=== PATIENT | female | born 1955 | race Caucasian/White ===

== ENCOUNTER 2016-07-11 14:46 | Emergency (ER) | payer OTHER ==
[~2016-07-11] VITALS: Ht 162.6 cm; Wt 97.0 kg
[~2016-07-11 14:46] MED LIST: ALBU8.5H3 IH; AMLO1CAP5 PO; ASPI-664 PO; DONE10TA7 PO; IBUP-1542 PO; IPRA12.93 IH; LAMO150T15 PO; METF500T4 PO; NAPR-260 PO; NIT4 SL; SER IH; SODI44SP11 NASAL; TOPI100T42 PO
[2016-07-11 14:49] VITALS: Ht 162.6 cm; Wt 97.0 kg
--- NOTE | 2016-07-11 17:10 | RADRPT ---
PROCEDURE: XR Knee. CLINICAL INDICATION: Right knee pain TECHNIQUE: Three views of the right knee are available for review. COMPARISON: None available FINDINGS: Mild narrowing of the medial compartment of the right knee is seen. Mild narrowing of the lateral c ompartment of the right knee is seen. There is narrowing of the patellofemoral joint as well. Ther e is significant associated osteophyte formation as well. Findings are consistent with significant osteoarthritic degenerative changes of the right knee. No acute fracture or dislocation is seen. N o radiopaque foreign body is identified. Alignment remains anatomic. There is a small suprapatellar effusion present. IMPRESSION: 1. Tricompartmental osteoarthritic degenerative changes of the right knee. 2. No acute fracture or dislocation is seen. RPTAT: [facility] Physician Pablo Date Time Electronically viewed and signed by Physician Pablo on 07/11/2016 17:10 ODILON/
--- NOTE | 2016-07-11 17:12 | RADRPT ---
PROCEDURE: XR Ankle. CLINICAL INDICATION: Ankle pain. TECHNIQUE: Three views of the right ankle are available for review. COMPARISON: None available FINDINGS: The osseous structures and surrounding soft tissues are all unremarkable. No acute fracture or dislocation is seen. Articular surfaces appear intact. There are Achilles tendon and plantar calcaneal spurs. No radiopaque foreign body is identified. IMPRESSION: 1. Achilles tendon and plantar calcaneal spurs. 2. No acute fracture or subluxation identified. RPTAT: [facility] Physician Pablo Date Time Electronically viewed and signed by Stuart Sawyer Physician on 07/11/2016 17:12 /
[2016-07-11] MEDS ORDERED: IBUP-1542 PO (17:15)
[2016-07-11 17:20] VITALS: BP 154/75; PULSE 68; RESP 18
--- NOTE | 2016-07-11 18:04 | ERD ---
ER Documentation Chief Complaint Date/Time DATE: 07/11/16 TIME: 17:56 Chief Complaint RT KNEE PAIN HPI Patient is a 61-year-old female who presents to the ED with right knee and ankle pain. She denies falls or trauma. She states that when she was walking she developed pain to the inside of her knee. She states that she does have chronic knee problems and has had previous surgery on this knee. She denies any falls. She denies hitting her head, losing consciousness or blacking out. She denies headache or dizziness or weakness. She denies abdominal pain, nausea , vomiting or diarrhea. She also complains of right ankle pain. She denies hurting her ankle, twisting or falling. She denies fever or chills. She is here for x-rays. She denies numbness or tingling. She denies pain in her hips. She is able to ambulate with her walker. No change in ambulation. Patient states that her blood pressure readings at home are usually 150s over 90s ROS All systems reviewed and are negative except as per history of present illness. Medications Home Meds Active Scripts Ibuprofen* (Motrin*) 600 Mg Tab, 600 MG PO Q6, #30 TAB Prov:KATE MAGALLON PA-C 07/11/16 Ibuprofen* (Motrin*) 600 Mg Tab, 600 MG PO Q8, #30 TAB Prov:TANA MAZARIEGOS DO 03/04/16 Naproxen* (Naprosyn*) 500 Mg Tablet, 500 MG PO BID Y for PAIN AND/OR INFLAMMATION, #30 TAB Prov:IMTIAZ AMAYA PA-C 02/29/16 Sodium Chloride (Saline Nasal [place]) 45 Ml [place], 2 SPRAYS NASAL Q2H Y for NASAL CONGESTION, #1 BOTTLE Prov:TRENA HUITRON DIVIDER OPERATOR 07/10/15 Ibuprofen* (Ibuprofen*) 600 Mg Tablet, 600 MG PO Q6, #20 TAB Prov:REMI HALL 05/10/15 Reported Medications Lamotrigine* (Lamictal*) 150 Mg Tablet, 150 MG PO BID, TAB 12/15/15 Metformin* (Glucophage*) 500 Mg Tab, 500 MG PO BID WITH MEALS, #60 TAB 12/15/15 Ipratropium [place]* (Atrovent HFA*) 12.9 Gm Aer.w.adap, 2 PUFF IH Q4H Y for SHORTNESS OF BREATH, EA 01/14/15 Salmeterol Xinafoate* (Serevent Diskus*) 50 Mcg/Disk W/Dev Disk.w.dev, 1 PUFF IH BID, INH 01/14/15 Donepezil* (Aricept*) 10 Mg Tablet, 10 MG PO DAILY, TAB 01/14/15 Amlodipine-Benazepril (Lotrel) 5-10 Mg Capsule, 1 CAP PO DAILY, CAP 11/07/14 Albuterol Sulfate* (Proair HFA*) 8.5 Gm Hfa.aer.ad, 2 PUFFS IH PRN 02/19/13 Aspirin (Aspirin) 81 Mg Tablet.dr, 81 MG PO DAILY 02/19/13 Nitroglycerin* (Nitrostat*) 0.4 Mg Tab.subl, 0.4 MG SL PRN 02/19/13 Topiramate* (Topamax*) 100 Mg Tablet, 100 MG PO BID 02/19/13 Allergies Allergies: Coded Allergies: acetaminophen (Verified Allergy, Mild, RASH, 07/10/15) codeine (Verified Allergy, Unknown, pt said she turns red, 07/10/15) temazepam (Verified Allergy, Unknown, ITCHINESS, RASH, 07/10/15) fluoxetine (Verified Adverse Reaction, Mild, DEPRESSION, 07/10/15) PMhx/Soc History of Surgery: No Anesthesia Reaction: No Hx Neurological Disorder: No (SEIZURE) Hx Respiratory Disorders: No Hx Cardiac Disorders: Yes (HNT) Hx Alcohol Use: No Hx Substance Use: No Hx Tobacco Use: No FmHx Family History: No coronary disease, No diabetes, No other Physical Exam Vitals Physical Exam GENERAL: Well-developed, well-nourished female using a walker. Appears in no acute distress. HEAD: Normocephalic, atraumatic. LUNG: Clear to auscultation bilaterally. No rhonchi, wheezing, rales or coarse breath sounds. HEART: Regular rate and rhythm. No murmurs, rubs or gallops. ORTHO: tenderness to anterior and posterior knee. no swelling. no erythema or signs of infection. able to flex and extend knee. slight tenderness to medial and laterol malleus. Pulses intact bilaterally. good flexion and extension. No swelling, ecchymosis or erythema. No deformities or step-offs. No signs of infection. BACK: No midline tenderness. Extremities: Equal pulses bilaterally. No peripheral clubbing, cyanosis or edema. No unilateral leg swelling. NEUROLOGIC: Alert and oriented. Moving all four extremities. 5/5 strength in all extremities. Normal speech. Steady gait. Cranial nerves II through XII intact SKIN: Normal color. Warm and dry. No rashes or lesions. Capillary refill < 2 seconds Procedures/MDM ER COURSE: I kept the patient and/or family informed of laboratory and diagnostic imaging results throughout the emergency room course. EKG, MONITORS, & DIAGNOSTIC IMAGIN[address] [place], [place] [id number] Radiology Main Line: [phone] DIAGNOSTIC IMAGING REPORT Patient: NORMA ALICEA : 1955 Age: 61 Sex: F MR #: [id number] DOS: 07/11/16 1606 Ordering MD: KATE MAGALLON PA-C Location: [facility] Room/Bed: PROCEDURE: XR Ankle. CLINICAL INDICATION: Ankle pain. TECHNIQUE: Three views of the right ankle are available for review. COMPARISON: None available FINDINGS: The osseous structures and surrounding soft tissues are all unremarkable. No acute fracture or dislocation is seen. Articular surfaces appear intact. There are Achilles tendon and plantar calcaneal spurs. No radiopaque foreign body is identified. IMPRESSION: 1. Achilles tendon and plantar calcaneal spurs. 2. No acute fracture or subluxation identified. RPTAT: [facility] Physician Pablo Date Time Electronically viewed and signed by Physician Pablo on 07/11/2016 17: 12 JH/ CC: KATE MAGALLON PA-C [address] [address] Radiology Main Line: [phone] DIAGNOSTIC IMAGING REPORT Patient: NORMA ALICEA : 1955 Age: 61 Sex: F MR #: [id number] DOS: 07/11/16 1606 Ordering MD: KATE MAGALLON PA-C Location: [facility] Room/Bed: PROCEDURE: XR Knee. CLINICAL INDICATION: Right knee pain TECHNIQUE: Three views of the right knee are available for review. COMPARISON: None available FINDINGS: Mild narrowing of the medial compartment of the right knee is seen. Mild narrowing of the lateral compartment of the right knee is seen. There is narrowing of the patellofemoral joint as well. There is significant associated osteophyte formation as well. Findings are consistent with significant osteoarthritic degenerative changes of the right knee. No acute fracture or dislocation is seen. No radiopaque foreign body is identified. Alignment remains anatomic. There is a small suprapatellar effusion present. IMPRESSION: 1. Tricompartmental osteoarthritic degenerative changes of the right knee. 2. No acute fracture or dislocation is seen. RPTAT: A[facility] Physician Pablo Date Time Electronically viewed and signed by Physician Pablo on 07/11/2016 17: 10 JH/ CC: KATE MAGALLON PA-C PROCEDURES: Charles wrap assessment: Neurovascularly intact post Charles wrap placement with good fit. MEDICAL DECISION MAKING: This is a 61-year-old female who presents with right knee and right ankle pain. Vital signs were reviewed. Patient is afebrile. Patient is not hypoxic. Patient had a blood pressure reading of 177/80 at triage. However after examination patient's blood pressure was 154/75. Patient does have a history of hypertension and she takes her medication daily. She denies any headache or dizziness. I have low suspicion for hypertensive urgency, emergency, seizures or endorgan damage. Low suspicion for intracranial hemorrhage, meningitis, intracranial mass, concussion, temporal arteritis, stroke, elevated intracranial pressure, seizure. I do not think a CT scan is warranted at this time as patient does not have any symptoms. As well as any blood pressure medication in the ED. Patient is to follow-up with her primary care provider regarding better management of her blood pressure. Her 177/80 blood pressure was likely related to pain and nerves in the ED. Patient's knee pain and ankle pain is likely osteoarthritis. Low suspicion for dislocation, fracture, septic joint, compartment syndrome, osteomyelitis, avascular necrosis, DVT, Achilles tendon rupture, cellulitis. At this time, unable to rule out any tendon and ligament injuries. Low suspicion for dislocation, fracture, septic joint, compartment syndrome, osteomyelitis, cellulitis, avascular necrosis, neurological injury, vascular injury, tendon laceration. DISCHARGE: At this time, patient is stable for discharge and outpatient management with no new complaints during the ER course. Patient was sent home with ibuprofen. Patient will be discharged home with instructions to recheck for new or worsening symptoms such as fever, nausea, weakness, LOC and to follow up with primary care in the next 1-2 days. Patient was advised to return to the ER for any new or worsening symptoms. Plan was discussed and patient and/or family understands and agrees. Home instructions were given. Departure Diagnosis: Primary Impression: Knee pain Laterality: right Chronicity: chronic Qualified Code: M25.561 - Chronic pain of right knee Condition: Stable Patient Instructions: What Is Osteoarthritis?, Osteoarthritis: Coping with Pain , Osteoarthritis: Exercise Referrals: SWAPNA AGUILA MD (PCP) Additional Instructions: Call your primary care doctor TOMORROW for an appointment during the next 1-2 days.See the doctor sooner or return here if your condition worsens before your appointment time. KATE MAGALLON PA-C Jul 11, 2016 18:04 Patient Instructions: What Is Osteoarthritis?, Osteoarthritis: Coping with Pain , Osteoarthritis: Exercise Referrals: SWAPNA AGUILA MD (PCP) Additional Instructions: Call your primary care doctor TOMORROW for an appointment during the next 1-2 days.See the doctor sooner or return here if your condition worsens before your appointment time. KATE MAGALLON PA-C Jul 11, 2016 18:04
== END 2016-07-11 17:41 | disposition home or self-care (01) ==
LOC: FTE 14:46
DX: M25.561 Pain in right knee (principal); I10 Essential (primary) hypertension; E11.9 Type 2 diabetes mellitus without complications; Z79.82 Long term (current) use of aspirin; Z79.84 Long term (current) use of oral hypoglycemic drugs
CPT/HCPCS: 73562; 73610; Z7502

== ENCOUNTER 2016-07-28 13:02 | Emergency (ER) | payer OTHER ==
[~2016-07-28] VITALS: Wt 97.8 kg
[2016-07-28] MEDS ORDERED: ASPIRIN 325 MG TAB PO STA (13:46)
[2016-07-28 13:59] LABS: BASOPHILS % 0.1 % (0.0-2.0); EOSINOPHILS # 0.1 10^3/ul (0.0-0.5); EOSINOPHILS % 1.3 % (0.0-7.0); HEMATOCRIT 42.7 % (37.0-47.0); HEMOGLOBIN 14.6 g/dl (12.0-16.0); LYMPHOCYTES % 14.3 % (15.0-51.0); MEAN CORPUSCULAR HEMOGLOBIN 30.9 pg (29.0-33.0); MEAN CORPUSCULAR HGB CONC 34.2 g/dl (32.0-37.0); MEAN CORPUSCULAR VOLUME 90.3 fl (82.0-101.0); MEAN PLATELET VOLUME 8.1 fl (7.4-10.4); MONOCYTE # 0.6 10^3/ul (0.3-0.9); MONOCYTES % 8.7 % (0.0-11.0); NEUTROPHIL # 5.4 10^3/ul (1.6-7.5); NEUTROPHILS % 75.6 % (39.0-77.0); PLATELET COUNT 177 10^3/UL (140-440); RED BLOOD COUNT 4.73 10^6/ul (4.20-5.40); RED CELL DISTRIBUTION WIDTH 13.4 % (11.5-14.5); UNCORRECTED WBC 7.2 10^3/ul (4.8-10.8); WHITE BLOOD COUNT 7.2 10^3/ul (4.8-10.8)
[2016-07-28 14:07] LABS: CHLORIDE 100 mmol/L (97-110); POTASSIUM 3.5 mmol/L (3.5-5.1); SODIUM 144 mmol/L (135-144)
[2016-07-28 14:09] LABS: INR 1.04; PROTIME 13.6 Sec (12.2-14.2); PT RATIO 1.1
[2016-07-28 14:10] LABS: ANION GAP 18 (8-16); CARBON DIOXIDE 30 mmol/L (21-31); CREATININE 1.45 mg/dl (0.44-1.00); PARTIAL THROMBOPLASTIN TIME 27.5 Sec (25.0-35.0)
[2016-07-28 14:11] LABS: BLOOD UREA NITROGEN 28 mg/dl (7-20); CALCIUM 9.5 mg/dl (8.4-10.2); GLUCOSE 116 mg/dl (70-220)
[2016-07-28 14:13] LABS: CONDITION 1
--- NOTE | 2016-07-28 14:14 | RADRPT ---
PROCEDURE: Chest x-ray CLINICAL INDICATION: Chest Pain.. TECHNIQUE: One-view frontal. COMPARISON: 03/03/2016 FINDINGS: The patient has taken a very limited inspiration. The cardiac silhouette is normal. No infiltrates are noted. No hilar abnormalities are identified. No pneumothorax or pleural effusions are visualized. A pacemaker like devices partially visualized in the left lateral extrathoracic chest. However no d efinite leads are noted. IMPRESSION: 1. No active cardiopulmonary changes. RPTAT: HH .Washington Aragon MD, MD Date Time Electronically viewed and signed by .Washington Aragon MD, on 07/28/2016 14:14 .G/
[2016-07-28 14:19] LABS: B-TYPE NATRIURETIC PEPTIDE 340 PG/ML (0-125)
[2016-07-28 14:25] LABS: TROPONIN-I < 0.012 ng/ml (0.00-0.12)
[2016-07-28] MEDS ORDERED: SOD CHLORIDE 0.9% 1,000 ML IV ONE (16:00)
[2016-07-28] MEDS ORDERED: AZIT500T5 PO (16:56)
[2016-07-28] MEDS ORDERED: UDROBDM PO (16:56)
[2016-07-28] MEDS ORDERED: ONDA4TAB11 PO (16:56)
[2016-07-28] MEDS ORDERED: HYDROCODONE/APAP (5/325) TAB PO ONE (17:00)
[2016-07-28 17:48] VITALS: BP 165/70; PULSE 65; RESP 17; TEMP 98.1
--- NOTE | 2016-07-28 17:56 | ERD ---
ER Documentation Chief Complaint Date/Time DATE: 07/28/16 TIME: 17:46 Chief Complaint COUGHING AND CONGESTION INTERMITTENT CHEST WALL PAIN WITH COUGH, NO FEVERS HPI This 61-year-old female presents with coughing congestion for the last 2 days. She is denies chest pain but states only when she coughed as her chest hurt. She has no fevers or chills. She lives at independent living facility that requires her to be out for 48 hours every week. This is negative for 48 hours and she was hoping she can stay here. ROS All systems reviewed and are negative except as per history of present illness. Medications Home Meds Active Scripts Guaifenesin-Dextromethorphan* (Robitussin* DM) 100MG/10MG/5ML Syrup, 5 ML PO Q6H Y for COUGH, #100 ML Prov:COSMETALITA DO 07/28/16 Azithromycin* (Azithromycin*) 500 Mg Tablet, 500 MG PO DAILY, #3 TAB Prov:TALITA AGUIAR DO 07/28/16 Ondansetron (Zofran Odt) 4 Mg Tab.rapdis, 4 MG PO Q6 for NAUSEA, #10 Prov:COSMETALITA DO 07/28/16 Reported Medications Lamotrigine* (Lamictal*) 150 Mg Tablet, 150 MG PO BID, TAB 12/15/15 Metformin* (Glucophage*) 500 Mg Tab, 500 MG PO BID WITH MEALS, #60 TAB 12/15/15 Ipratropium [place]* (Atrovent HFA*) 12.9 Gm Aer.w.adap, 2 PUFF IH Q4H Y for SHORTNESS OF BREATH, EA 01/14/15 Salmeterol Xinafoate* (Serevent Diskus*) 50 Mcg/Disk W/Dev Disk.w.dev, 1 PUFF IH BID, INH 01/14/15 Donepezil* (Aricept*) 10 Mg Tablet, 10 MG PO DAILY, TAB 01/14/15 Amlodipine-Benazepril (Lotrel) 5-10 Mg Capsule, 1 CAP PO DAILY, CAP 11/07/14 Albuterol Sulfate* (Proair HFA*) 8.5 Gm Hfa.aer.ad, 2 PUFFS IH PRN 02/19/13 Aspirin (Aspirin) 81 Mg Tablet.dr, 81 MG PO DAILY 02/19/13 Nitroglycerin* (Nitrostat*) 0.4 Mg Tab.subl, 0.4 MG SL PRN 02/19/13 Topiramate* (Topamax*) 100 Mg Tablet, 100 MG PO BID 02/19/13 Discontinued Scripts Ibuprofen* (Motrin*) 600 Mg Tab, 600 MG PO Q6, #30 TAB Prov:KATE MAGALLON PA-C 07/11/16 Ibuprofen* (Motrin*) 600 Mg Tab, 600 MG PO Q8, #30 TAB Prov:TANA MAZARIEGOS DO 03/04/16 Naproxen* (Naprosyn*) 500 Mg Tablet, 500 MG PO BID Y for PAIN AND/OR INFLAMMATION, #30 TAB Prov:IMTIAZ AMAYA PA-C 02/29/16 Sodium Chloride (Saline Nasal [place]) 45 Ml [place], 2 SPRAYS NASAL Q2H Y for NASAL CONGESTION, #1 BOTTLE Prov:TRENA HUITRON BOWL TOPPER 07/10/15 Ibuprofen* (Ibuprofen*) 600 Mg Tablet, 600 MG PO Q6, #20 TAB Prov:REMI HALL 05/10/15 Allergies Allergies: Coded Allergies: acetaminophen (Verified Allergy, Mild, RASH, 07/28/16) codeine (Verified Allergy, Unknown, pt said she turns red, 07/28/16) temazepam (Verified Allergy, Unknown, ITCHINESS, RASH, 07/28/16) fluoxetine (Verified Adverse Reaction, Mild, DEPRESSION, 07/28/16) PMhx/Soc 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 ) Hx Psychiatric Problems: Yes (depression) Hx Miscellaneous Medical Probl: Yes (diabetic . metformin) Hx Alcohol Use: No Hx Substance Use: No Hx Tobacco Use: No Smoking Status: Unknown if ever smoked Physical Exam Vitals Vital Signs Date Time Temp Pulse Resp B/P Pulse Ox O2 Delivery O2 Flow Rate FiO2 07/28/16 16:27 97 20 133/81 100 Room Air 07/28/16 15:11 70 20 158/76 98 Room Air 07/28/16 14:22 68 18 131/80 97 Room Air 07/28/16 14:00 71 18 131/80 98 Room Air 07/28/16 13:35 72 18 150/79 98 Room Air 07/28/16 13:11 98.0 76 20 156/75 98 Physical Exam Const: [] No distress Head: Atraumatic Eyes: Normal Conjunctiva, EOMI, PERRLA ENT: Normal External Ears, Nose and Mouth. Neck: Full range of motion..~ No meningismus. Resp: Clear to auscultation bilaterally Cardio: Regular rate and rhythm, no murmurs Abd: Soft, non tender, non distended. Normal bowel sounds Skin: No petechiae or rashes Back: No midline or flank tenderness Ext: No cyanosis, or edema Neur: Awake and alert and oriented 3, no focal deficits Psych: Normal Mood and Affect Result Diagram: 07/28/16 1347 07/28/16 1347 Results 24 hrs Laboratory Tests Test 07/28/16 13:47 Activated Partial Thromboplast Time 27.5Sec Anion Gap 18 B-Type Natriuretic Peptide 340PG/ML Basophils # 0.010^3/ul Basophils % 0.1% Blood Urea Nitrogen 28mg/dl Calcium Level 9.5mg/dl Carbon Dioxide Level 30mmol/L Chloride Level 100mmol/L Creatinine 1.45mg/dl Eosinophils # 0.110^3/ul Eosinophils % 1.3% Glucose Level 116mg/dl Hematocrit 42.7% Hemoglobin 14.6g/dl INR International Normalized Ratio 1.04 Lymphocytes # 1.010^3/ul Lymphocytes % 14.3% Mean Corpuscular Hemoglobin 30.9pg Mean Corpuscular Hemoglobin Concent 34.2g/dl Mean Corpuscular Volume 90.3fl Mean Platelet Volume 8.1fl Monocytes # 0.610^3/ul Monocytes % 8.7% Neutrophils # 5.410^3/ul Neutrophils % 75.6% Nucleated Red Blood Cells # 0.010^3/ul Nucleated Red Blood Cells % 0.0/100WBC Platelet Count 02490^3/UL Potassium Level 3.5mmol/L Prothrombin Time 13.6Sec Prothrombin Time Ratio 1.1 Red Blood Count 4.7310^6/ul Red Cell Distribution Width 13.4% Sodium Level 144mmol/L Troponin I < 0.012ng/ml White Blood Count 7.210^3/ul Current Medications Medications (Trade) Dose Ordered Sig/Bladimir Route PRN Reason Start Time Stop Time Status Last Admin Dose Admin Aspirin 325 mg 325 mg ONCE STAT PO 07/28/16 13:46 07/28/16 13:50 DC 07/28/16 14:18 Sodium Chloride (NS) 1,000 ml @ 1,000 mls/hr Q1H ONCE IV 07/28/16 16:00 07/28/16 16:59 DC 07/28/16 16:11 Acetaminophen/ Hydrocodone Bitart ([place] (5/325)) 1 tab ONCE ONCE PO 07/28/16 17:00 07/28/16 17:01 DC 07/28/16 17:02 Procedures/MDM This 61-year-old female presents for a mild cough and congestion. Being treated with azithromycin for bronchitis. She also has an elevated creatinine more so than on her latest visit. She states that she hardly ever drinks water prefers to drink soda. I hydrated her with a liter of normal saline. She also asked for a pain pill for her pain when she coughs. She was not observed coughing emergency room I did give her [place] which she said relieved her pain. She states that she will drink water now. I'm giving her Zofran on that she has not have nausea so that she can drink water. I am also discharging her with Robitussin DM cough syrup. She has a primary care doctor and I'm encouraging follow-up on Saturday. Given return precautions to the ER if she develops any other acute symptoms. No signs of serious bacterial infection. Chest x-ray interpretation: No acute process, no infiltrate no widened mediastinum no pulmonary edema, no fractures EKG interpretation: Normal sinus rhythm normal axis, slight T-wave inversions in anterolateral leads, normal intervals. Essentially unchanged from prior EKG. Cardio monitor interpretation: Normal sinus rhythm without arrhythmia Departure Diagnosis: Primary Impression: Bronchitis Additional Impression: BESSIE (acute kidney injury) Condition: Stable Patient Instructions: Bronchitis, Antiobiotic Treatment (Adult), Renal Insufficiency Additional Instructions: Call your primary care doctor TOMORROW for an appointment during the next 1-2 days.See the doctor sooner or return here if your condition worsens before your appointment time. TALITA AGUIAR DO Jul 28, 2016 17:56
== END 2016-07-28 17:49 | disposition home or self-care (01) ==
LOC: E/R 13:02
DX: J20.9 Acute bronchitis, unspecified (principal); R07.89 Other chest pain; N17.9 Acute kidney failure, unspecified; E11.9 Type 2 diabetes mellitus without complications; Z79.82 Long term (current) use of aspirin; Z79.84 Long term (current) use of oral hypoglycemic drugs
CPT/HCPCS: 36415; 71010; 80048; 83880; 84484; 85025; 85610; 85730; J7030; Z7502; Z7610; 93005

== ENCOUNTER 2016-09-11 21:32 | Emergency (ER) | payer OTHER ==
[~2016-09-11] VITALS: Ht 162.6 cm; Wt 102.2 kg
[~2016-09-11 21:32] MED LIST changes: +AZIT500T5 PO; -IBUP-1542 PO; -NAPR-260 PO; +ONDA4TAB11 PO; -SODI44SP11 NASAL; +UDROBDM PO
[2016-09-11 22:23] VITALS: Ht 162.6 cm; Wt 102.2 kg
--- NOTE | 2016-09-12 01:39 | ERD ---
ER Documentation Chief Complaint Date/Time DATE: 09/12/16 TIME: 01:38 Chief Complaint low back pain, denies injury HPI 61-year-old female presents here in emergency department for complaint of lower back pain while walking today. Patient was walking, felt a snap in her lower back, started to have the pain afterwards. Describes the pain as sharp pain, 6/ 10 scale, worse upon movement. Patient denies any numbness or tingling. Patient denies any incontinence. Patient denies any direct trauma and affected area. Patient did not take any medications to help with symptoms. ROS All systems reviewed and are negative except as per history of present illness. Medications Home Meds Active Scripts Guaifenesin-Dextromethorphan* (Robitussin* DM) 100MG/10MG/5ML Syrup, 5 ML PO Q6H Y for COUGH, #100 ML Prov:TALITA AGUIAR DO 07/28/16 Azithromycin* (Azithromycin*) 500 Mg Tablet, 500 MG PO DAILY, #3 TAB Prov:TALITA AGUIAR DO 07/28/16 Ondansetron (Zofran Odt) 4 Mg Tab.rapdis, 4 MG PO Q6 for NAUSEA, #10 Prov:TALITA AGUIAR DO 07/28/16 Reported Medications Lamotrigine* (Lamictal*) 150 Mg Tablet, 150 MG PO BID, TAB 12/15/15 Metformin* (Glucophage*) 500 Mg Tab, 500 MG PO BID WITH MEALS, #60 TAB 12/15/15 Ipratropium [place]* (Atrovent HFA*) 12.9 Gm Aer.w.adap, 2 PUFF IH Q4H Y for SHORTNESS OF BREATH, EA 01/14/15 Salmeterol Xinafoate* (Serevent Diskus*) 50 Mcg/Disk W/Dev Disk.w.dev, 1 PUFF IH BID, INH 01/14/15 Donepezil* (Aricept*) 10 Mg Tablet, 10 MG PO DAILY, TAB 01/14/15 Amlodipine-Benazepril (Lotrel) 5-10 Mg Capsule, 1 CAP PO DAILY, CAP 11/07/14 Albuterol Sulfate* (Proair HFA*) 8.5 Gm Hfa.aer.ad, 2 PUFFS IH PRN 02/19/13 Aspirin (Aspirin) 81 Mg Tablet.dr, 81 MG PO DAILY 02/19/13 Nitroglycerin* (Nitrostat*) 0.4 Mg Tab.subl, 0.4 MG SL PRN 02/19/13 Topiramate* (Topamax*) 100 Mg Tablet, 100 MG PO BID 02/19/13 Allergies Allergies: Coded Allergies: acetaminophen (Verified Allergy, Mild, RASH, 07/28/16) codeine (Verified Allergy, Unknown, pt said she turns red, 07/28/16) temazepam (Verified Allergy, Unknown, ITCHINESS, RASH, 07/28/16) fluoxetine (Verified Adverse Reaction, Mild, DEPRESSION, 07/28/16) PMhx/Soc 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 ) Hx Psychiatric Problems: Yes (depression) Hx Miscellaneous Medical Probl: Yes (diabetic . metformin) Hx Alcohol Use: No Hx Substance Use: No Hx Tobacco Use: No FmHx Family History: No coronary disease, No diabetes, No other Physical Exam Vitals Vital Signs Date Time Temp Pulse Resp B/P Pulse Ox O2 Delivery O2 Flow Rate FiO2 09/11/16 22:23 98.3 64 20 157/72 100 Physical Exam GENERAL: The patient is well developed and appropriate for usual state of health, in no apparent distress. CHEST: Clear to auscultation bilaterally. There are no rales, wheezes or rhonchi. HEART: Regular rate and rhythm. No murmurs, clicks, rubs or gallops. No S3 or S4. ABDOMEN: Soft, nontender and nondistended. Good bowel sounds. No rebound or guarding. No gross peritonitis. No gross organomegaly or masses. No Hawthorne sign or McBurney point tenderness. BACK: No midline or flank tenderness. Muscle spasms noted in the paraspinal aspect of the lumbar spine. EXTREMITIES: Equal pulses bilaterally. There is no peripheral clubbing, cyanosis or edema. No focal swelling or erythema. Full range of motion. Grossly neurovascularly intact. NEURO: Alert and oriented. Cranial nerves 2-12 intact. Motor strength in all 4 extremities with 5/5 strength. Sensation grossly intact. Normal speech and gait. SKIN: There is no apparent rash or petechia. The skin is warm and dry. HEMATOLOGIC AND LYMPHATIC: There is no evidence of excessive bruising or lymphedema. No gross cervical, axillary, or inguinal lymphadenopathy. Results 24 hrs Laboratory Tests Test 09/12/16 01:39 Bedside Urine Blood Negative Bedside Urine Glucose (UA) Negative Bedside Urine Ketones (LAB) Negative Bedside Urine Leukocyte Esterase (L Negative Bedside Urine Nitrite (LAB) Negative Bedside Urine Protein (LAB) Negative Bedside Urine pH (LAB) 6.0 Current Medications Medications (Trade) Dose Ordered Sig/Bladimir Route PRN Reason Start Time Stop Time Status Last Admin Dose Admin Ketorolac Tromethamine (Toradol) 30 mg ONCE STAT IM 09/12/16 01:49 09/12/16 01:50 DC 09/12/16 02:03 Patient was given medication for pain here in emergency department, after treatment, patient verbalized feeling much better. Patient's pain is improved. PROCEDURE: CT Lumbar Spine. CLINICAL INDICATION: Pain TECHNIQUE: Noncontrast CT of the lumbar spine was performed with multiplanar reformatted images generated from the axial acquired data. The administered radiation dose was CTDI vol = 36 mGy, DLP = 1255 mGy-cm. COMPARISON: There are no similar studies submitted for comparison. FINDINGS: SCOLIOSIS: No significant scoliosis. LORDOSIS: Within normal limits. VERTEBRAL BODY HEIGHTS: Maintained. ALLIGNMENT: Within normal limits. OSSEOUS STRUCTURES: There is no destructive osseous lesion.There is no acute fracture. DISCS: There is disk space narrowing throughout the lumbar spine with some vacuum disk phenomena at L3-4. T12-L1 : There is no disc herniation, spinal canal, or foraminal stenosis. L1-L2 : There is no disc herniation, spinal canal, or foraminal stenosis. L2-L3 : There is no disc herniation, spinal canal, or foraminal stenosis. L3-L4 : There is mild diffuse disk bulge mild right neural foraminal narrowing. L4-L5 : There is mild diffuse disk bulge with superimposed small central disk protrusion. There is mild right neural foraminal narrowing. L5-S1 : There is no disc herniation, spinal canal, or foraminal stenosis. SACRUM: The sacroiliac joints are intact. OTHER: The aorta is normal in caliber. IMPRESSION: No acute fracture or subluxation. Mild degenerative changes at L3-4 and L4-5 with mild right neural foraminal narrowing. RPTAT: HIKT .Efren Rosario MD, MD Date Time Electronically viewed and signed by .Efren Rosario MD, MD on 09/12/2016 03:03 .T/ CC: BONI WELDON BACK TACKER Procedures/MDM Medical Decision Making: Patient's pain is most likely consistent with a back muscle strain, possibly also from degenerative disc disease is noted in the CT scan and lumbar spine. There is no suspicion for neurovascular compromise. Patient has intact sensation and circulation of the affected extremity. There is low suspicion for septic arthritis. Patient does not have any fever. Radiology exams of the affected area does not show any fracture or dislocation. Disposition: Home. Patient is given prescription for ibuprofen for mild to moderate pain, tramadol for severe pain. Patient was advised to avoid heavy lifting and apply ice on affected area. Patient was advised that if symptoms are worse, numbness, tingling, high fever, unable to move joint, worsening symptoms, to return to emergency department immediately. Otherwise, patient is advised to follow up with the primary care doctor in 5-7 days for reevaluation of symptoms. Departure Diagnosis: Primary Impression: Back pain Back pain location: low back pain Chronicity: acute Back pain laterality: bilateral Sciatica presence: without sciatica Qualified Code: M54.5 - Acute bilateral low back pain without sciatica Additional Impression: Degenerative disc disease Spinal region: lumbar Qualified Code: M51.36 - Degeneration of intervertebral disc of lumbar region Condition: Stable Patient Instructions: Back Pain (Acute Or Chronic), Degenerative Disk Disease Additional Instructions: Patient is given prescription for ibuprofen for mild to moderate pain, tramadol for severe pain. Patient was advised to avoid heavy lifting and apply ice on affected area. Patient was advised that if symptoms are worse, numbness , tingling, high fever, unable to move joint, worsening symptoms, to return to emergency department immediately. Otherwise, patient is advised to follow up with the primary care doctor in 5-7 days for reevaluation of symptoms. BONI WELDON NP Sep 12, 2016 01:39
[2016-09-12 01:42] LABS: URINE BLOOD (Dip) POC Negative (NEGATIVE)
[2016-09-12] MEDS ORDERED: KETOROLAC 30 MG INJ IM STA (01:49)
--- NOTE | 2016-09-12 03:03 | RADRPT ---
PROCEDURE: CT Lumbar Spine. CLINICAL INDICATION: Pain TECHNIQUE: Noncontrast CT of the lumbar spine was performed with multiplanar reformatted images gen erated from the axial acquired data. The administered radiation dose was CTDI vol = 36 mGy, DLP = 1 255 mGy-cm. COMPARISON: There are no similar studies submitted for comparison. FINDINGS: SCOLIOSIS: No significant scoliosis. LORDOSIS: Within normal limits. VERTEBRAL BODY HEIGHTS: Maintained. ALLIGNMENT: Within normal limits. OSSEOUS STRUCTURES: There is no destructive osseous lesion.There is no acute fracture. DISCS: There is disk space narrowing throughout the lumbar spine with some vacuum disk phenomena at L3-4. T12-L1 : There is no disc herniation, spinal canal, or foraminal stenosis. L1-L2 : There is no disc herniation, spinal canal, or foraminal stenosis. L2-L3 : There is no disc herniation, spinal canal, or foraminal stenosis. L3-L4 : There is mild diffuse disk bulge mild right neural foraminal narrowing. L4-L5 : There is mild diffuse disk bulge with superimposed small central disk protrusion. There is mild right neural foraminal narrowing. L5-S1 : There is no disc herniation, spinal canal, or foraminal stenosis. SACRUM: The sacroiliac joints are intact. OTHER: The aorta is normal in caliber. IMPRESSION: No acute fracture or subluxation. Mild degenerative changes at L3-4 and L4-5 with mild right neural foraminal narrowing. RPTAT: HIKT .Efren Rosario MD, MD Date Time Electronically viewed and signed by .Efren Rosario MD, on 09/12/2016 03:03 .T/
[2016-09-12] MEDS ORDERED: TRAM50TA2 PO (03:13)
[2016-09-12] MEDS ORDERED: IBUP-1542 PO (03:13)
[2016-09-12 03:28] VITALS: BP 140/92; PULSE 58; RESP 18; TEMP 97.5
== END 2016-09-12 03:49 | disposition home or self-care (01) ==
LOC: FTE 21:32
DX: M54.5 Low back pain (principal); M51.36 Other intervertebral disc degeneration, lumbar region; I10 Essential (primary) hypertension; E11.9 Type 2 diabetes mellitus without complications; Z79.82 Long term (current) use of aspirin; Z79.84 Long term (current) use of oral hypoglycemic drugs
CPT/HCPCS: 72131; 81003; 96372; Z7502

== ENCOUNTER 2016-12-24 12:03 | Emergency (ER) | payer OTHER ==
[~2016-12-24] VITALS: Ht 162.6 cm; Wt 98.0 kg
[~2016-12-24 12:03] MED LIST changes: +IBUP-1542 PO; +TRAM50TA2 PO
[2016-12-24 12:20] VITALS: Ht 162.6 cm; Wt 98.0 kg
[2016-12-24] MEDS ORDERED: ELIM TOP (13:06)
--- NOTE | 2016-12-24 13:11 | ERD ---
ER Documentation Chief Complaint Date/Time DATE: 12/24/16 TIME: 13:09 Chief Complaint Complains possible bug bite /rash HPI Patient is a 61-year-old female who is here requesting medical clearance to return to medical facility. She is seeking medical clearance for possible scabies. 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 Denies any acute rashes. Denies any fever. ROS All systems reviewed and are negative except as per history of present illness. Medications Home Meds Active Scripts Permethrin* (Elimite*) 5% Cr, 1 APPLIC TOP ONCE, #60 TUB Prov:NANO DELGADO PA-C 12/24/16 Tramadol HCl (Tramadol HCl) 50 Mg Tablet, 50 MG PO Q6 Y for PAIN, #20 TAB Prov:BONI WELDON [employer]ARM TRUCK DRIVER 09/12/16 Ibuprofen* (Motrin*) 600 Mg Tab, 600 MG PO Q6H Y for PAIN AND OR ELEVATED TEMP, #30 TAB Prov:BONI WELDON [employer]ARM TRUCK DRIVER 09/12/16 Guaifenesin-Dextromethorphan* (Robitussin* DM) 100MG/10MG/5ML Syrup, 5 ML PO Q6H Y for COUGH, #100 ML Prov:TALITA AGUIAR DO 07/28/16 Azithromycin* (Azithromycin*) 500 Mg Tablet, 500 MG PO DAILY, #3 TAB Prov:TALITA AGUIAR DO 07/28/16 Ondansetron (Zofran Odt) 4 Mg Tab.rapdis, 4 MG PO Q6 for NAUSEA, #10 Prov:TALITA AGUIAR DO 07/28/16 Reported Medications Lamotrigine* (Lamictal*) 150 Mg Tablet, 150 MG PO BID, TAB 12/15/15 Metformin* (Glucophage*) 500 Mg Tab, 500 MG PO BID WITH MEALS, #60 TAB 12/15/15 Ipratropium [place]* (Atrovent HFA*) 12.9 Gm Aer.w.adap, 2 PUFF IH Q4H Y for SHORTNESS OF BREATH, EA 01/14/15 Salmeterol Xinafoate* (Serevent Diskus*) 50 Mcg/Disk W/Dev Disk.w.dev, 1 PUFF IH BID, INH 01/14/15 Donepezil* (Aricept*) 10 Mg Tablet, 10 MG PO DAILY, TAB 01/14/15 Amlodipine-Benazepril (Lotrel) 5-10 Mg Capsule, 1 CAP PO DAILY, CAP 11/07/14 Albuterol Sulfate* (Proair HFA*) 8.5 Gm Hfa.aer.ad, 2 PUFFS IH PRN 02/19/13 Aspirin (Aspirin) 81 Mg Tablet.dr, 81 MG PO DAILY 02/19/13 Nitroglycerin* (Nitrostat*) 0.4 Mg Tab.subl, 0.4 MG SL PRN 02/19/13 Topiramate* (Topamax*) 100 Mg Tablet, 100 MG PO BID 02/19/13 Allergies Allergies: Coded Allergies: acetaminophen (Verified Allergy, Mild, RASH, 07/28/16) codeine (Verified Allergy, Unknown, pt said she turns red, 07/28/16) temazepam (Verified Allergy, Unknown, ITCHINESS, RASH, 07/28/16) fluoxetine (Verified Adverse Reaction, Mild, DEPRESSION, 07/28/16) PMhx/Soc History of Surgery: Yes (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 , HTN,) Hx Psychiatric Problems: Yes (depression) Hx Miscellaneous Medical Probl: Yes (diabetic . metformin) Hx Alcohol Use: No Hx Substance Use: No Hx Tobacco Use: No FmHx Family History: diabetes Physical Exam Vitals Vital Signs Date Time Temp Pulse Resp B/P Pulse Ox O2 Delivery O2 Flow Rate FiO2 12/24/16 12:20 98.6 66 20 191/86 97 Physical Exam Const: [] Head: Atraumatic Eyes: Normal Conjunctiva ENT: Normal External Ears, Nose and Mouth. Neck: Full range of motion..~ No meningismus. Resp: Clear to auscultation bilaterally Cardio: Regular rate and rhythm, no murmurs Abd: Soft, non tender, non distended. Normal bowel sounds Skin: No petechiae or rashes Procedures/MDM Patient is here for medical clearance for possible scabies infection. Her vital signs are normal. At this time there is no evidence of contagious rash or skin infection. I will treat her empirically with permethrin cream and she is medically clear pending completion of treatment. Recommended this patient follow up with her primary care doctor within 48 hours or return to the emergency room for any worsening of symptoms. However this time I do believe there is suitable for outpatient management. I answered all their questions and they agreed with the plan and were discharged home. Departure Diagnosis: Primary Impression: Generalized pruritus Condition: Stable Patient Instructions: Normal Exam, (Child) (Adult) Additional Instructions: Call your primary care doctor TOMORROW for an appointment during the next 1-2 days.See the doctor sooner or return here if your condition worsens before your appointment time. NANO DELGADO PA-C Dec 24, 2016 13:11
== END 2016-12-24 13:41 | disposition left against medical advice (07) ==
LOC: FTE 12:03
DX: L29.9 Pruritus, unspecified (principal); I10 Essential (primary) hypertension; E11.9 Type 2 diabetes mellitus without complications; Z79.82 Long term (current) use of aspirin; Z79.84 Long term (current) use of oral hypoglycemic drugs
CPT/HCPCS: 99283

== ENCOUNTER 2017-04-25 21:03 | Emergency (ER) | payer OTHER ==
[~2017-04-25] VITALS: Ht 165.1 cm; Wt 75.0 kg
[~2017-04-25 21:03] MED LIST changes: +ELIM TOP
[2017-04-25 21:36] VITALS: Ht 165.1 cm; Wt 75.0 kg
[2017-04-25] MEDS ORDERED: TOPI-44 PO (21:47)
[2017-04-25] MEDS ORDERED: ARIP5TAB7 PO (21:47)
[2017-04-25] MEDS ORDERED: BUPR75TA9 PO (21:48)
[2017-04-25 22:15] LABS: BASOPHILS % 0.3 % (0.0-2.0); EOSINOPHILS # 0.1 10^3/ul (0.0-0.5); HEMATOCRIT 33.7 % (37.0-47.0); HEMOGLOBIN 11.3 g/dl (12.0-16.0); LYMPHOCYTES # 1.4 10^3/ul (0.8-2.9); LYMPHOCYTES % 25.1 % (15.0-51.0); MEAN CORPUSCULAR HGB CONC 33.5 g/dl (32.0-37.0); MEAN CORPUSCULAR VOLUME 92.6 fl (82.0-101.0); MEAN PLATELET VOLUME 9.3 fl (7.4-10.4); MONOCYTE # 0.5 10^3/ul (0.3-0.9); MONOCYTES % 8.9 % (0.0-11.0); NEUTROPHIL # 3.7 10^3/ul (1.6-7.5); NEUTROPHILS % 64.4 % (39.0-77.0); PLATELET COUNT 159 10^3/UL (140-415); RED BLOOD COUNT 3.64 10^6/ul (4.20-5.40); RED CELL DISTRIBUTION WIDTH 13.6 % (11.5-14.5); WHITE BLOOD COUNT 5.7 10^3/ul (4.8-10.8)
--- NOTE | 2017-04-25 22:17 | ERD ---
ER Documentation Chief Complaint Chief Complaint Chest pain HPI The patient is a 62-year-old female, presenting to the ER because of substernal chest pain radiating down to her bilateral arms about 8 PM while she was resting , 04/09, no aggravating or relieving factor. She has chronic similar chest pain however the chest pain is worse tonight. She denies chest pain with exertion/vomiting/diaphoresis, dyspnea, abdominal pain, vomiting, dysuria, diarrhea. She does not smoke nor drink She was treated by EMS with aspirin 162 mg p.o. and 2 nitroglycerin spray with some response. Past medical history: Seizure disorder, depression, diabetes mellitus, hypertension Past surgical history: Craniotomy due to seizure, cholecystectomy ROS All systems reviewed and are negative except as per history of present illness. Medications Home Meds Reported Medications Bupropion Hcl* (Bupropion Hcl*) 75 Mg Tablet, 75 MG PO DAILY, TAB 04/25/17 Aripiprazole* (Abilify*) 5 Mg Tab, 5 MG PO QHS, #30 TAB 04/25/17 Topiramate* (Topiramate*) 25 Mg Tablet, 25 MG PO BID, TAB 04/25/17 Discontinued Reported Medications Lamotrigine* (Lamictal*) 150 Mg Tablet, 150 MG PO BID, TAB 12/15/15 Metformin* (Glucophage*) 500 Mg Tab, 500 MG PO BID WITH MEALS, #60 TAB 12/15/15 Ipratropium [place]* (Atrovent HFA*) 12.9 Gm Aer.w.adap, 2 PUFF IH Q4H Y for SHORTNESS OF BREATH, EA 01/14/15 Salmeterol Xinafoate* (Serevent Diskus*) 50 Mcg/Disk W/Dev Disk.w.dev, 1 PUFF IH BID, INH 01/14/15 Donepezil* (Aricept*) 10 Mg Tablet, 10 MG PO DAILY, TAB 01/14/15 Amlodipine-Benazepril (Lotrel) 5-10 Mg Capsule, 1 CAP PO DAILY, CAP 11/07/14 Albuterol Sulfate* (Proair HFA*) 8.5 Gm Hfa.aer.ad, 2 PUFFS IH PRN 02/19/13 Aspirin (Aspirin) 81 Mg Tablet.dr, 81 MG PO DAILY 02/19/13 Nitroglycerin* (Nitrostat*) 0.4 Mg Tab.subl, 0.4 MG SL PRN 02/19/13 Topiramate* (Topamax*) 100 Mg Tablet, 100 MG PO BID 02/19/13 Discontinued Scripts Permethrin* (Elimite*) 5% Cr, 1 APPLIC TOP ONCE, #60 TUB Prov:NANO DELGADO PA-C 12/24/16 Tramadol HCl (Tramadol HCl) 50 Mg Tablet, 50 MG PO Q6 Y for PAIN, #20 TAB Prov:BONI WELDON [employer]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/12/16 Ibuprofen* (Motrin*) 600 Mg Tab, 600 MG PO Q6H Y for PAIN AND OR ELEVATED TEMP, #30 TAB Prov:BONI WELDON V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/12/16 Guaifenesin-Dextromethorphan* (Robitussin* DM) 100MG/10MG/5ML Syrup, 5 ML PO Q6H Y for COUGH, #100 ML Prov:TALITA AGUIAR DO 07/28/16 Azithromycin* (Azithromycin*) 500 Mg Tablet, 500 MG PO DAILY, #3 TAB Prov:TALITA AGUIAR DO 07/28/16 Ondansetron (Zofran Odt) 4 Mg Tab.rapdis, 4 MG PO Q6 for NAUSEA, #10 Prov:TALITA AGUIAR DO 07/28/16 Allergies Allergies: Coded Allergies: acetaminophen (Verified Allergy, Mild, RASH, 04/25/17) codeine (Verified Allergy, Unknown, pt said she turns red, 04/25/17) temazepam (Verified Allergy, Unknown, ITCHINESS, RASH, 04/25/17) fluoxetine (Verified Adverse Reaction, Mild, DEPRESSION, 04/25/17) PMhx/Soc History of Surgery: Yes (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 , HTN,) Hx Psychiatric Problems: Yes (depression) Hx Miscellaneous Medical Probl: Yes (diabetic . metformin) Hx Alcohol Use: No Hx Substance Use: No Hx Tobacco Use: No Smoking Status: Never smoker Physical Exam Vitals Vital Signs Date Time Temp Pulse Resp B/P Pulse Ox O2 Delivery O2 Flow Rate FiO2 04/25/17 23:34 65 20 154/82 98 Room Air 04/25/17 21:36 98.9 70 20 147/71 99 Physical Exam Const: No acute distress. Head: Atraumatic. Eyes: Normal Conjunctiva. ENT: Normal External Ears, Nose and Mouth. Neck: Full range of motion. No meningismus. Resp: Clear to auscultation bilaterally. Cardio: Regular rate and rhythm. Abd: Soft, non distended, normal bowel sounds, non tender. Skin: No petechiae or rashes. Back: No midline or flank tenderness. Ext: No cyanosis, or edema. Neur: Awake and alert. No focal deficit Psych: Normal Mood and Affect. Result Diagram: 04/25/17219904/25/172199 Results 24 hrs Laboratory Tests Test 04/25/17 22:00 White Blood Count 5.710^3/ul Red Blood Count 3.6410^6/ul Hemoglobin 11.3g/dl Hematocrit 33.7% Mean Corpuscular Volume 92.6fl Mean Corpuscular Hemoglobin 31.0pg Mean Corpuscular Hemoglobin Concent 33.5g/dl Red Cell Distribution Width 13.6% Platelet Count 28964^3/UL Mean Platelet Volume 9.3fl Neutrophils % 64.4% Lymphocytes % 25.1% Monocytes % 8.9% Eosinophils % 1.0% Basophils % 0.3% Nucleated Red Blood Cells % 0.0/100WBC Neutrophils # 3.710^3/ul Lymphocytes # 1.410^3/ul Monocytes # 0.510^3/ul Eosinophils # 0.110^3/ul Basophils # 0.010^3/ul Nucleated Red Blood Cells # 0.010^3/ul Sodium Level 146mmol/L Potassium Level 3.1mmol/L Chloride Level 108mmol/L Carbon Dioxide Level 26mmol/L Anion Gap 15 Blood Urea Nitrogen 18mg/dl Creatinine 1.00mg/dl Glucose Level 93mg/dl Calcium Level 8.8mg/dl Total Bilirubin 0.2mg/dl Direct Bilirubin 0.00mg/dl Indirect Bilirubin 0.2mg/dl Aspartate Amino Transf (AST/SGOT) 19IU/L Alanine Aminotransferase (ALT/SGPT) 35IU/L Alkaline Phosphatase 77IU/L Troponin I 0.019ng/ml Total Protein 6.6g/dl Albumin 4.2g/dl Globulin 2.40g/dl Albumin/Globulin Ratio 1.75 Lipase 39U/L Current Medications Medications (Trade) Dose Ordered Sig/Bladimir Route PRN Reason Start Time Stop Time Status Last Admin Dose Admin Aspirin (Aspirin) 162 mg ONCE ONCE PO 04/26/17 00:00 04/26/17 00:01 DC 04/26/17 00:05 Nitroglycerin (Nitroglycerin 2% Oint) 1 inch ONCE ONCE TD 04/26/17 00:00 04/26/17 00:01 DC 04/26/17 00:05 Procedures/MDM EKG: At 2148 hrs. Read by emergency physician Rate/Rhythm: Normal Sinus Rhythm 67 beats/min QRS, ST, T-waves: No ST elevation, no T inversion, Low voltage Impression: Abnormal EKG EKG: At 2320 hrs. Read by emergency physician Rate/Rhythm: Normal Sinus Rhythm 63 beats/min QRS, ST, T-waves: No ST elevation, no T inversion, Low voltage, Nonspecific ST and T abnormality Impression: Abnormal EKG [place] [id number] Radiology Main Line: [phone] DIAGNOSTIC IMAGING REPORT Patient: NORMA ALICEA : 1955 Age: 62 Sex: F [id number] DOS: 04/25/17 0000 Ordering MD: SWAPNA ACOSTA MD Location: E/R Room/Bed: PROCEDURE: CHEST - 1 VIEW CLINICAL INDICATION: 62-year-old female with chest pain. TECHNIQUE: A single frontal AP upright portable view of the chest was performed. The images were reviewed on a PACS workstation. COMPARISON: Chest x-ray July 20, 2016. FINDINGS: Again noted is a left lateral chest generator with electrode extending into the left neck and the proximal portion appearing looped without interval change. The cardiomediastinal silhouette is within normal limits. There is a shallow inspiration. There is mild bibasilar subsegmental atelectasis. There is no evidence for an infiltrate. There is no evidence for congestive heart failure. There is no evidence for pneumothorax. The osseous structures are intact. IMPRESSION: 1. Shallow inspiration with mild bibasilar subsegmental atelectasis. 2. Left-sided stimulator generator with electrode extending into the left neck as previously visualized. .Billy Renee MD, Date Time Electronically viewed and signed by .Billy Renee MD, on 04/25/2017 22:54 .M/ CC: SWAPNA ACOSTA MD MEDICAL MAKING DECISION: The patient is a 72-year-old female, presenting with acute chest pain that is concerning for ACS, Acute hypokalemia. She is treated with aspirin 162 mg p.o. and 1 inch of nitroglycerin ointment to the chest wall , Potassium chloride 40 mEq p.o. for acute hypokalemia with good response. The differential diagnoses considered include but are not limited to acute coronary syndrome, acute myocardial infarction, pericarditis, pulmonary embolism , aortic dissection, pneumonia, pleural effusion, pneumothorax, GERD, chest wall pain. Departure Diagnosis: Primary Impression: Chest pain Additional Impressions: Hypokalemia Anemia Condition: Stable Comments I discussed the findings with the patient. I discussed the patient with her physician Dr. Santacruz at 12:40 am who was made aware of the lab, the treatment , the patient condition. The patient is transferred to [facility] via ambulance Disclaimer: Inadvertent spelling and grammatical errors are likely due to EHR/ dictation software use and do not reflect on the overall quality of patient care. Also, please note that the electronic time recorded on this note does not necessarily reflect the actual time of the patient encounter. RAMANDEEP ART MD Apr 25, 2017 22:17
[2017-04-25 22:46] LABS: ALBUMIN/GLOBULIN RATIO 1.75; CALCIUM 8.8 mg/dl (8.4-10.2); POTASSIUM 3.1 mmol/L (3.5-5.1)
[2017-04-25 22:47] LABS: ALBUMIN 4.2 g/dl (3.3-4.9); BILIRUBIN,INDIRECT 0.2 mg/dl (0-1.1); BILIRUBIN,TOTAL 0.2 mg/dl (0.2-1.3); TOTAL PROTEIN 6.6 g/dl (6.1-8.1)
--- NOTE | 2017-04-25 22:54 | RADRPT ---
PROCEDURE: CHEST - 1 VIEW CLINICAL INDICATION: 62-year-old female with chest pain. TECHNIQUE: A single frontal AP upright portable view of the chest was performed. The images were reviewed on a PACS workstation. COMPARISON: Chest x-ray July 20, 2016. FINDINGS: Again noted is a left lateral chest generator with electrode extending into the left neck and the pr oximal portion appearing looped without interval change. The cardiomediastinal silhouette is within normal limits. There is a shallow inspiration. There is mild bibasilar subsegmental atelectasis. The re is no evidence for an infiltrate. There is no evidence for congestive heart failure. There is no evidence for pneumothorax. The osseous structures are intact. IMPRESSION: 1. Shallow inspiration with mild bibasilar subsegmental atelectasis. 2. Left-sided stimulator generator with electrode extending into the left neck as previously visuali zed. .Billy Renee MD, MD Date Time Electronically viewed and signed by .Billy Renee MD, on 04/25/2017 22:54 .M/
[2017-04-25 23:08] LABS: TROPONIN-I 0.019 ng/ml (0.00-0.12)
[2017-04-26] MEDS ORDERED: NITROGLYCERIN 2% 1 GM OINT PKT TD ONE
[2017-04-26] MEDS ORDERED: ASPIRIN 81 MG TAB PO ONE
[2017-04-26] MEDS ORDERED: ONDANSETRON 4 MG INJ IV STA (02:50)
[2017-04-26] MEDS ORDERED: morphine 2 MG INJ IV ONE (03:00)
[2017-04-26 03:20] VITALS: BP 131/68; PULSE 60; RESP 16
== END 2017-04-26 03:27 | disposition short-term general hospital (02) ==
LOC: E/R 21:03
DX: D64.9 Anemia, unspecified (principal); E87.6 Hypokalemia; I10 Essential (primary) hypertension; E11.9 Type 2 diabetes mellitus without complications; Z79.82 Long term (current) use of aspirin; Z79.84 Long term (current) use of oral hypoglycemic drugs
CPT/HCPCS: 71010; 80053; 83690; 84484; 85025; 93005; 96374; 96375; J2270; J2405; Z7502; Z7610

== ENCOUNTER 2017-05-05 17:26 | Emergency (ER) | payer OTHER ==
[~2017-05-05] VITALS: Ht 157.5 cm; Wt 60.0 kg
[~2017-05-05 17:26] MED LIST changes: -ALBU8.5H3 IH; -AMLO1CAP5 PO; +ARIP5TAB7 PO; -ASPI-664 PO; -AZIT500T5 PO; +BUPR75TA9 PO; -DONE10TA7 PO; -ELIM TOP; -IBUP-1542 PO; -IPRA12.93 IH; -LAMO150T15 PO; -METF500T4 PO; -NIT4 SL; -ONDA4TAB11 PO; -SER IH; +TOPI-44 PO; -TOPI100T42 PO; -TRAM50TA2 PO; -UDROBDM PO
[2017-05-05 17:34] VITALS: TEMP 98.3
[2017-05-05 17:40] VITALS: Ht 157.5 cm; Wt 60.0 kg
--- NOTE | 2017-05-05 18:03 | ERD ---
ER Documentation Chief Complaint Chief Complaint Possible seizure HPI This patient is a very poor historian. She is a 62-year-old female who apparently flagged down the police stating that she had a seizure. She describes that she saw her hands shaking. The patient denies loss of consciousness. She describes a history of seizures and states that she has had seizures since 2 years old. She is thinks that she is taking Dilantin. She cannot give me the dosing. She states that she has not had her Dilantin for at least 2 days. She denies any headache chest pain or shortness of breath. She does state that she has regular breakthrough seizures. Patient denies any tongue biting or incontinence or loss of consciousness. Patient has complete resolution of symptoms currently. ROS All systems reviewed and are negative except as per history of present illness. Medications Home Meds Active Scripts Phenytoin* Sodium Extended (Dilantin*) 100 Mg Capsule, 100 MG PO TID for 30 Days , CAP Start 24 hours after Dilantin loading dose in ER Prov:FIGUEROA DANIELLE MD 05/05/17 Reported Medications Bupropion Hcl* (Bupropion Hcl*) 75 Mg Tablet, 75 MG PO DAILY, TAB 04/25/17 Aripiprazole* (Abilify*) 5 Mg Tab, 5 MG PO QHS, #30 TAB 04/25/17 Topiramate* (Topiramate*) 25 Mg Tablet, 25 MG PO BID, TAB 04/25/17 Allergies Allergies: Coded Allergies: acetaminophen (Verified Allergy, Mild, RASH, 04/25/17) codeine (Verified Allergy, Unknown, pt said she turns red, 04/25/17) temazepam (Verified Allergy, Unknown, ITCHINESS, RASH, 04/25/17) fluoxetine (Verified Adverse Reaction, Mild, DEPRESSION, 04/25/17) PMhx/Soc History of Surgery: Yes (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 , HTN,) Hx Psychiatric Problems: Yes (depression) Hx Miscellaneous Medical Probl: Yes (diabetic . metformin) Hx Alcohol Use: No Hx Substance Use: No Hx Tobacco Use: No FmHx Family History: No diabetes Physical Exam Vitals Vital Signs Date Time Temp Pulse Resp B/P Pulse Ox O2 Delivery O2 Flow Rate FiO2 05/05/17 17:40 98.3 79 18 188/82 100 05/05/17 17:34 98.3 79 18 188/82 97 Room Air Physical Exam General: Disheveled but no acute distress Head: Normocephalic, atraumatic. Eyes: Pupils equally reactive, EOM intact ENT: Moist mucous membranes Neck: Supple, no lymphadenopathy Respiratory: Lungs clear bilaterally, no distress Cardiovascular: RRR, no murmurs, rubs, or gallops Abdominal: Soft, non-tender, non-distended, no peritoneal signs : Deferred MSK: No edema, no unilateral swelling, 5/5 strength Neurologic: Alert and oriented, moving all extremities, normal speech, no focal weakness, no cerebellar signs, no meningismus Skin: No rash, no evidence of head trauma Psych: Normal mood Result Diagram: 05/05/17 1849 05/05/17 184 Results 24 hrs Laboratory Tests Test 05/05/17 18:48 05/05/17 18:49 Bedside Glucose 112mg/dL White Blood Count 7.910^3/ul Red Blood Count 4.2610^6/ul Hemoglobin 13.7g/dl Hematocrit 39.9% Mean Corpuscular Volume 93.7fl Mean Corpuscular Hemoglobin 32.2pg Mean Corpuscular Hemoglobin Concent 34.3g/dl Red Cell Distribution Width 13.3% Platelet Count 91150^3/UL Mean Platelet Volume 10.1fl Neutrophils % 70.7% Lymphocytes % 21.0% Monocytes % 6.6% Eosinophils % 0.6% Basophils % 0.6% Nucleated Red Blood Cells % 0.0/100WBC Neutrophils # 5.510^3/ul Lymphocytes # 1.710^3/ul Monocytes # 0.510^3/ul Eosinophils # 0.110^3/ul Basophils # 0.110^3/ul Nucleated Red Blood Cells # 0.010^3/ul Sodium Level 144mmol/L Potassium Level 3.1mmol/L Chloride Level 104mmol/L Carbon Dioxide Level 28mmol/L Anion Gap 15 Blood Urea Nitrogen 17mg/dl Creatinine 0.97mg/dl Glucose Level 117mg/dl Calcium Level 9.3mg/dl Phenytoin (Dilantin) Level < 3.0ug/ml Current Medications Medications (Trade) Dose Ordered Sig/Bladimir Route PRN Reason Start Time Stop Time Status Last Admin Dose Admin Phenytoin/Sodium Chloride (Dilantin/NS) 100 ml @ 200 mls/hr ONCE STAT IVPB 05/05/17 19:38 05/05/17 20:07 Procedures/MDM LAB INTERPRETATION: No electrolyte abnormality, subtherapeutic Dilantin level MEDICAL DECISION MAKING: The patient presents with reporting a seizure. However the patient did not have a postictal state did not have loss of consciousness and clearly describes the episode. Consider possibility of pseudoseizure. The patient is claiming that she takes Dilantin. Reviewing the patient's electronic medical record Dilantin is not listed as a current medication. Patient cannot provide me with dosing of Dilantin and she cannot provide me with the pharmacy at which she fills her prescriptions. However despite multiple conversations the patient is adamant that she is currently taking Dilantin and supposed to be taking Dilantin. No signs or symptoms concerning for head injury or increased intracranial pressure. Therefore no indication for CT imaging of the brain. Seizure precautions will be initiated the patient will benefit from laboratory testing, Dilantin level and Dilantin load is low. The patient was advised of the risks of use of Dilantin if she does not regularly take it. She again confirms that she takes Dilantin. ER COURSE: The patient was loaded with Dilantin without complication. Her level was subtherapeutic. The patient cannot provide me dosing therefore I will initiated 100 3 times daily and she was advised to follow-up with her neurologist. She states understanding and remains well-appearing. I kept the patient and/or family informed of laboratory and diagnostic imaging results throughout the emergency room course. DISPOSITION PLAN: We discussed follow up with the patient's primary care doctor within 24 to 48 hours as needed. We also discussed return to the emergency room for worsening symptoms or worsening condition. Outpatient referral: Neurologist Discharge Medications: Lantus 100 mg 3 times daily Departure Diagnosis: Primary Impression: Seizure disorder Additional Impression: Noncompliance with medication regimen Condition: Stable FIGUEROA DANIELLE MD May 05, 2017 18:03
[2017-05-05] MEDS ORDERED: PHEN100C PO (18:24)
[2017-05-05] MEDS ORDERED: PHENYTOIN 1,000 MG in SOD CHLORIDE 0.9% 80 ML IVPB STA (19:38)
[2017-05-05 20:54] VITALS: BP 150/90; PULSE 78; RESP 17
[2017-05-06] MEDS ORDERED: IBUP400T22 PO (02:04)
== END 2017-05-05 20:55 | disposition home or self-care (01) ==
LOC: E/R 17:26
DX: G40.909 Epilepsy, unspecified, not intractable, without status epilepticus (principal); I10 Essential (primary) hypertension; E11.9 Type 2 diabetes mellitus without complications; Z79.84 Long term (current) use of oral hypoglycemic drugs; Z91.14 Patient's other noncompliance with medication regimen
CPT/HCPCS: 36415; 80048; 80185; 82962; 85025; 96374; J1165; Z7502; Z7610

== ENCOUNTER 2017-05-06 01:27 | Emergency (ER) | payer OTHER ==
[~2017-05-06] VITALS: Ht 162.6 cm; Wt 88.8 kg
[~2017-05-06 01:27] MED LIST changes: +PHEN100C PO
[2017-05-06 01:42] VITALS: Ht 162.6 cm; Wt 88.8 kg
[2017-05-06] MEDS ORDERED: IBUPROFEN 200 MG TAB PO STA (02:02)
[2017-05-06] MEDS ORDERED: IBUP400T22 PO (02:04)
--- NOTE | 2017-05-06 02:10 | ERD ---
ER Documentation Chief Complaint Chief Complaint headache x 1 hour HPI This is a 62 year old female homeless with seizure disorder presents to the ED stating she has mild to moderate occipital headache. Patient was seen earlier today and discharged, she states she was never given medications. Patient was asking to sleep since she has no place to go. She denies any neuro deficits ROS All systems reviewed and are negative except as per history of present illness. Medications Home Meds Active Scripts Ibuprofen* (Ibuprofen*) 400 Mg Tablet, 400 MG PO Q6H Y for PAIN, #30 TAB Prov:TIA GRAYSON PA-C 05/06/17 Phenytoin* Sodium Extended (Dilantin*) 100 Mg Capsule, 100 MG PO TID for 30 Days , CAP Start 24 hours after Dilantin loading dose in ER Prov:FIGUEROA DANIELLE MD 05/05/17 Reported Medications Bupropion Hcl* (Bupropion Hcl*) 75 Mg Tablet, 75 MG PO DAILY, TAB 04/25/17 Aripiprazole* (Abilify*) 5 Mg Tab, 5 MG PO QHS, #30 TAB 04/25/17 Topiramate* (Topiramate*) 25 Mg Tablet, 25 MG PO BID, TAB 04/25/17 Allergies Allergies: Coded Allergies: acetaminophen (Verified Allergy, Mild, RASH, 04/25/17) codeine (Verified Allergy, Unknown, pt said she turns red, 04/25/17) temazepam (Verified Allergy, Unknown, ITCHINESS, RASH, 04/25/17) fluoxetine (Verified Adverse Reaction, Mild, DEPRESSION, 04/25/17) PMhx/Soc History of Surgery: Yes (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 , HTN,) Hx Psychiatric Problems: Yes (depression) Hx Miscellaneous Medical Probl: Yes (diabetic) Hx Alcohol Use: No Hx Substance Use: No Hx Tobacco Use: No Physical Exam Vitals Vital Signs Date Time Temp Pulse Resp B/P Pulse Ox O2 Delivery O2 Flow Rate FiO2 05/06/17 01:42 97.8 85 20 180/85 98 Physical Exam Const: [] Head: Atraumatic Eyes: Normal Conjunctiva ENT: Normal External Ears, Nose and Mouth. Neck: Full range of motion..~ No meningismus. Resp: Clear to auscultation bilaterally Cardio: Regular rate and rhythm, no murmurs Abd: Soft, non tender, non distended. Normal bowel sounds Skin: No petechiae or rashes Back: No midline or flank tenderness Ext: No cyanosis, or edema Neur: Awake and alert, CN 2-12 intact, gait and coordination intact Psych: Normal Mood and Affect Results 24 hrs Current Medications Medications (Trade) Dose Ordered Sig/Bladimir Route PRN Reason Start Time Stop Time Status Last Admin Dose Admin Ibuprofen (Motrin) 400 mg ONCE STAT PO 05/06/17 02:02 05/06/17 02:03 DC Procedures/MDM This is a 62 year old female homeless with seizure disorder presents to the ED stating she has mild to moderate occipital headache. Patient was seen earlier today and discharged, she states she was never given medications. Patient was asking to sleep since she has no place to go. She appears well, she had no neurological deficits on examination. Patient was given ibuprofen in the ED. Patient was given time to sleep, she felt better after resting. Stable to be discharged home with precautions to return emergency department for any worsening signs or symptoms Departure Diagnosis: Primary Impression: Headache Condition: Stable Patient Instructions: Self-Care for Headaches Referrals: SWAPNA AGUILA MD (PCP) TIA GRAYSON PA-C May 06, 2017 02:10
== END 2017-05-06 04:01 | disposition home or self-care (01) ==
LOC: FTE 01:27
DX: R51 Headache (principal); E11.9 Type 2 diabetes mellitus without complications; I10 Essential (primary) hypertension
CPT/HCPCS: Z7502; Z7610; 99283

== ENCOUNTER 2017-05-10 21:53 | Inpatient (IN) | payer OTHER ==
[~2017-05-10] VITALS: Ht 162.6 cm; Wt 90.4 kg
[~2017-05-10 21:53] MED LIST changes: +IBUP400T22 PO
[2017-05-10 22:33] VITALS: Ht 162.6 cm; Wt 90.4 kg
[2017-05-10 22:35] VITALS: PULSE 58
[2017-05-10] MEDS ORDERED: DONE10TA33 PO (23:14)
[2017-05-10] MEDS ORDERED: ALBU8.5H3 INH (23:14)
[2017-05-10] MEDS ORDERED: TRAZ50TA18 PO (23:14)
[2017-05-10] MEDS ORDERED: IPRA12.93 INHALATION (23:14)
[2017-05-10] MEDS ORDERED: LAMO100T83 PO (23:14)
[2017-05-10] MEDS ORDERED: TOPI100C5 PO (23:14)
[2017-05-10] MEDS ORDERED: DIL125/5 PO (23:14)
[2017-05-10] MEDS ORDERED: ASPI-664 PO (23:14)
[2017-05-10] MEDS ORDERED: INSU100C SQ (23:14)
[2017-05-10] MEDS ORDERED: AMLO1CAP8 PO (23:14)
[2017-05-10] MEDS ORDERED: ADV10050 INHALATION (23:14)
[2017-05-10 23:33] VITALS: BP 137/76; RESP 18
[2017-05-11] VITALS (11 sets, daily range): BP systolic 130–172; BP diastolic 63–76; PULSE 50–72; RESP 17–20
[2017-05-11] MEDS ORDERED: INSULIN ASPART [NOVOLOG] 3 ML PEN SC ONE (00:45)
[2017-05-11] MEDS ORDERED: morphine 2 MG INJ IV PRN (01:00)
[2017-05-11] MEDS: IPRATROPIUM (HFA) 12.9 GM INHALER INH SCH ×5 (01:00→17:44)
[2017-05-11] MEDS ORDERED: DOCUSATE SODIUM 100 MG CAP PO PRN (01:00)
[2017-05-11] MEDS: FAMOTIDINE 20 MG TAB PO SCH ×2 (01:00→09:20)
[2017-05-11] MEDS: ALBUTEROL HFA 8 GM INHALER INH SCH ×5 (01:00→17:44)
[2017-05-11] MEDS: NAPROXEN 500 MG TAB PO SCH ×2 (01:00→09:20)
[2017-05-11] MEDS ORDERED: NACL 0.9% 3 ML SYG IV SCH (01:00)
[2017-05-11] MEDS: SALMETEROL/FLUTICASONE 100/50 INHA INH SCH ×2 (02:00→09:54)
[2017-05-11 02:29] LABS: CK-MB 0.66 ng/ml (0.0-2.4); TROPONIN-I 0.013 ng/ml (0.00-0.12)
[2017-05-11] MEDS ORDERED: LAMOTRIGINE 100 MG TAB PO SCH (09:00)
[2017-05-11] MEDS ORDERED: TOPIRAMATE 25 MG TAB PO SCH (09:00)
[2017-05-11] MEDS ORDERED: AMLODIPINE 5 MG TAB PO SCH (09:00)
[2017-05-11] MEDS ORDERED: BENAZEPRIL 10 MG TAB PO SCH (09:00)
[2017-05-11] MEDS ORDERED: DONEPEZIL 10 MG TAB PO SCH (09:00)
[2017-05-11] MEDS ORDERED: ENOXAPARIN 40 MG/0.4 ML SYG SC SCH (09:00)
[2017-05-11] MEDS ORDERED: BUPROPION 75 MG TAB PO SCH (09:00)
[2017-05-11] MEDS ORDERED: ASPIRIN (EC) 81 MG TAB PO SCH (09:00)
[2017-05-11] MEDS: PHENYTOIN 100 MG CAP PO SCH ×2 (09:19→12:40)
[2017-05-11] MEDS ORDERED: SOD CHLORIDE 0.9% 500 ML IV ONE (11:30)
[2017-05-11 11:34] LABS: BASOPHILS % 0.6 % (0.0-2.0); EOSINOPHILS # 0.1 10^3/ul (0.0-0.5); EOSINOPHILS % 1.3 % (0.0-7.0); HEMATOCRIT 36.4 % (37.0-47.0); HEMOGLOBIN 12.5 g/dl (12.0-16.0); LYMPHOCYTES # 1.2 10^3/ul (0.8-2.9); LYMPHOCYTES % 23.1 % (15.0-51.0); MEAN CORPUSCULAR HEMOGLOBIN 32.1 pg (29.0-33.0); MEAN CORPUSCULAR HGB CONC 34.3 g/dl (32.0-37.0); MEAN CORPUSCULAR VOLUME 93.3 fl (82.0-101.0); MEAN PLATELET VOLUME 9.4 fl (7.4-10.4); MONOCYTE # 0.3 10^3/ul (0.3-0.9); MONOCYTES % 6.4 % (0.0-11.0); NEUTROPHIL # 3.6 10^3/ul (1.6-7.5); NEUTROPHILS % 68.4 % (39.0-77.0); PLATELET COUNT 159 10^3/UL (140-415); RED CELL DISTRIBUTION WIDTH 13.2 % (11.5-14.5); WHITE BLOOD COUNT 5.3 10^3/ul (4.8-10.8)
[2017-05-11 11:50] LABS: CREATINE KINASE 34 IU/L (23-200)
[2017-05-11 11:51] LABS: ALBUMIN 3.9 g/dl (3.3-4.9); ALBUMIN/GLOBULIN RATIO 1.34; BILIRUBIN,INDIRECT 0.3 mg/dl (0-1.1); BILIRUBIN,TOTAL 0.3 mg/dl (0.2-1.3); CREATININE 0.9 mg/dl (0.44-1.00); MAGNESIUM 1.7 mg/dl (1.7-2.5); POTASSIUM 4.2 mmol/L (3.5-5.1); TOTAL PROTEIN 6.8 g/dl (6.1-8.1)
[2017-05-11] MEDS ORDERED: LISINOPRIL 20 MG TAB PO ONE (12:00)
[2017-05-11 12:03] LABS: CK-MB 0.51 ng/ml (0.0-2.4)
[2017-05-11 12:04] LABS: D-DIMER 550.89 ng/ml (<460)
[2017-05-11 12:06] LABS: TROPONIN-I < 0.012 ng/ml (0.00-0.12)
--- NOTE | 2017-05-11 13:02 | HP ---
DATE OF ADMISSION: 05/10/2017 CHIEF COMPLAINT: "I needed to get some rest." HISTORY OF PRESENT ILLNESS: The patient is a 62-year-old female with diabetes mellitus, seizure dis order, and possible diabetic neuropathy, possible coronary artery disease, migraine headache, and ma ceasar depressive disorder and epilepsy as well as chronic bronchitis who stated she was walking outsid e and noticed that her body was shaking. She did not lose consciousness. She had no other issues w hatsoever and presented back to the emergency department for evaluation of a seizure. Initially, marimar mcdowell was in the ER earlier that day for headache. The patient was seen by Dr. Vasquez and the PA, Feng Blanco. The patient was sent home on Advil. The patient returned. There does not appear to be any reported chest pain; however, the patient's troponin was checked and was normal at 0.013. Today, the dictation states that the patient was asking to sleep since she has no place to go. How ever, when I spoke to her, she stated she lives in a house. She denies any neuro deficits. There i s no mention of any chest pain whatsoever. Initially she had mild to moderate occipital headache. Today she complains of nothing whatsoever. She only states that she may have had a seizure. He fel t that her body was shaking while she was walking. As stated above, she never lost consciousness or had any other issues whatsoever. MEDICATIONS: 1. Ibuprofen 400 mg every 6 hours p.r.n. headache. 2. Dilantin 100 mg 3 times a day. 3. Bupropion 75 mg once daily. 4. Abilify 5 mg once daily. 5. Topamax 25 mg twice daily. ALLERGIES: 1. ACETAMINOPHEN. 2. CODEINE. 3. TEMAZEPAM. 4. FLUOXETINE. PAST SURGICAL HISTORY: She stated she had a gallbladder surgery and a brain surgery to stop seizure s. PAST MEDICAL HISTORY: 1. Reported diabetes mellitus. 2. Possible diabetic neuropathy. 3. Reported coronary artery disease. 4. Hypertension. 5. Migraine headaches. 6. 7. Epilepsy. 8. Chronic bronchitis. She also states she had a hysterectomy in the past. SOCIAL HISTORY: She also lived in an assisted living facility in the past. She does not smoke. Sourav gordon does not currently drink alcohol. REVIEW OF SYSTEMS: Essentially negative except as stated in history of present illness. FAMILY HISTORY: The patient cannot recall. PHYSICAL EXAMINATION: VITAL SIGNS: Temperature is 98.0, blood pressure is 137/76, pulse rate of 57 to 64, respiratory rat e is 18, oxygen saturation 96% on room air. HEENT: Normocephalic, atraumatic. Extraocular movements are intact. Pupils are equal, round, reac t to light and accommodation. Oropharynx was dry. NECK: No JVD was noted. No thyromegaly was noted. She does have poor dentition. CARDIOVASCULAR: She had a regular rate and rhythm without appreciable murmurs, rubs, or gallops. LUNGS: Clear to auscultation bilaterally without rales, rhonchi or crackles. ABDOMEN: Soft, nontender, nondistended workup bowel sounds present in all 4 quadrants. EXTREMITIES: No clubbing, cyanosis, or edema is noted. NEUROLOGIC: She is alert and oriented x3. Cranial nerves II through XII are grossly intact. Stren gth and sensation was grossly intact. She is able to ambulate in the room to the bathroom without a n assistive device. LABORATORIES/TESTS: Her glucose is 100. CK 49. CK index 1.3. CK-MB 0.66. Troponin 0.013, BMP an d CBC pending at the time of evaluation. IMPRESSION: The patient is a 62-year-old female who presented to the emergency department earlier i n the day with occipital headache. She was discharged home with Advil. She returned because she di d not get the medication filled. She stated that she needed to place asleep according to the dictat ion. A troponin was checked and it was within normal limits. An EKG was not even done. Subsequent ly, the patient was sent to the telemetry floor for admission. She has no chest pain whatsoever. H er first troponin is negative. Her second troponin is pending. I will also get an EKG. She does n ot appear to have any medical indication for admission whatsoever. The patient states she lives at home. We are trying to reach her emergency contact (Mr. Дмитрий Martines) to determine additional infor mation on the patient. Furthermore, the hospital. case management has been contacted as well to he lp make sure the patient is safely placed. Dictated By: SONYA MADDEN/DEANNA Conf#: [id number] DID#: [id number]
--- NOTE | 2017-05-11 14:34 | RADRPT ---
Vent Rate: 53 bpm RR Interval: 0 msec SC Interval: 144 msec QRS Duration: 64 msec QT Interval: 488 msec QTC Interval: 457 msec P-R-T [place]: 39 - 5 - 18 degrees Sinus bradycardia Nonspecific T wave abnormality Prolonged QT Abnormal ECG No previous tracing available for comparison Electronically Signed By: Cole Ochoa [id number]
--- NOTE | 2017-05-11 16:00 | PDOCDIS ---
Discharge Instructions DIAGNOSIS Discharge Diagnosis Continue meds upon transfer to [facility] CONDITION Patient Condition: Good HOME CARE INSTRUCTIONS: Diet Instructions: Low Fat /CholesterolSpecial Diet: 1800 Calorie ACTIVITY: Activity Restrictions: Slowly Increase Activity FOLLOW UP/APPOINTMENTS Follow-up Plan Transfer to [facility] SCHOOL/WORK RELEASE May return to School/Work with: No Restrictions SONYA BAZAN MD May 11, 2017 16:00
[2017-05-11] MEDS ORDERED: traZODone 50 MG TAB PO SCH (21:00)
[2017-05-11] MEDS ORDERED: ARIPIPRAZOLE 5 MG TAB PO SCH (21:00)
== END 2017-05-11 20:28 | disposition short-term general hospital (02) | DRG 103 ==
LOC: MS4 22:27
PROVIDERS: ADMIT Internal Medicine; ATTEND Internal Medicine
DX: R51 Headache (principal); E11.40 Type 2 diabetes mellitus with diabetic neuropathy, unspecified; I25.10 Atherosclerotic heart disease of native coronary artery without angina pectoris; I10 Essential (primary) hypertension; G40.909 Epilepsy, unspecified, not intractable, without status epilepticus; J42 Unspecified chronic bronchitis; Z79.4 Long term (current) use of insulin; Z90.710 Acquired absence of both cervix and uterus
CPT/HCPCS: 80053; 82550; 82553; 82962; 83036; 83735; 83880; 84484; 85025; 85378; 93005; J1650; J1815; J2270; J7040

== ENCOUNTER 2017-05-19 21:45 | Emergency (ER) | payer OTHER ==
[~2017-05-19] VITALS: Ht 162.6 cm; Wt 85.4 kg
[~2017-05-19 21:45] MED LIST changes: +ADV10050 INHALATION; +ALBU8.5H3 INH; +AMLO1CAP8 PO; +ASPI-664 PO; +DIL125/5 PO; +DONE10TA33 PO; +INSU100C SQ; +IPRA12.93 INHALATION; +LAMO100T83 PO; +TOPI100C5 PO; +TRAZ50TA18 PO
[2017-05-19 21:49] VITALS: Ht 162.6 cm; Wt 85.4 kg
--- NOTE | 2017-05-19 22:38 | ERD ---
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 Denies suicidal homicidal ideation. Denies auditory visual hallucinations. Denies any other current complaints. ROS All systems reviewed and are negative except as per history of present illness. Medications Home Meds Active Scripts Ibuprofen* (Ibuprofen*) 400 Mg Tablet, 400 MG PO Q6H Y for PAIN, #30 TAB Prov:TIA GRAYSON PA-C 05/06/17 Phenytoin* Sodium Extended (Dilantin*) 100 Mg Capsule, 100 MG PO TID for 30 Days , CAP Start 24 hours after Dilantin loading dose in ER Prov:FIGUEROA DANIELLE MD 05/05/17 Reported Medications Topiramate (Topiramate ER) 100 Mg Cap.spr.24, 100 MG PO DAILY 05/10/17 Albuterol Sulfate* (Proair HFA*) 8.5 Gm Hfa.aer.ad, 2 PUFF INH Q4, #1 INHALER 05/10/17 Ipratropium [place]* (Atrovent HFA*) 12.9 Gm Aer.w.adap, 2 PUFF INHALATION Q4H for SHORTNESS OF BREATH, #1 INHALER 05/10/17 Salmeterol Xinaf-Fluticasone* (Advair*) 100/50 Diskus Inhaler, 1 INH INHALATION BID, #1 INHALER 05/10/17 Lamotrigine* (Lamictal*) 100 Mg Tablet, 100 MG PO DAILY, TAB 05/10/17 Amlodipine Besylate/Benazepril (Amlodipine-Benazepril 5-10 mg) 1 Each Capsule, 1 EACH PO DAILY, CAP 05/10/17 Donepezil HCl (Aricept) 10 Mg Tablet, 10 MG PO DAILY, #30 TAB 05/10/17 Aspirin (Aspirin) 81 Mg Tablet.dr, 81 MG PO DAILY 05/10/17 Phenytoin (Dilantin) 100 Mg/4 Ml Susp, 100 MG PO DAILY for 30 Days, BOTTLE 05/10/17 Insulin Lispro (Humalog) 100 Unit/1 Ml Cartridge, 100 UNIT SQ 05/10/17 Trazodone Hcl* (Trazodone Hcl*) 50 Mg Tablet, 50 MG PO QHS, #30 TAB 05/10/17 Bupropion Hcl* (Bupropion Hcl*) 75 Mg Tablet, 75 MG PO DAILY, TAB 04/25/17 Aripiprazole* (Abilify*) 5 Mg Tab, 5 MG PO QHS, #30 TAB 04/25/17 Topiramate* (Topiramate*) 25 Mg Tablet, 25 MG PO BID, TAB 04/25/17 Allergies Allergies: Coded Allergies: acetaminophen (Verified Allergy, Mild, RASH, 04/25/17) codeine (Verified Allergy, Unknown, pt said she turns red, 04/25/17) temazepam (Verified Allergy, Unknown, ITCHINESS, RASH, 04/25/17) fluoxetine (Verified Adverse Reaction, Mild, DEPRESSION, 04/25/17) PMhx/Soc History of Surgery: Yes (brain sx tube tied) Anesthesia Reaction: No Hx Neurological Disorder: Yes (BRAIN SX , EPELIPSY) Hx Respiratory Disorders: No Hx Cardiac Disorders: Yes (HTN) Hx Psychiatric Problems: Yes (DEPRESSION) Hx Miscellaneous Medical Probl: No Hx Alcohol Use: No Hx Substance Use: No Hx Tobacco Use: No Physical Exam Vitals Vital Signs Date Time Temp Pulse Resp B/P Pulse Ox O2 Delivery O2 Flow Rate FiO2 05/19/17 21:49 96.6 92 20 133/87 98 Physical Exam Const: [] Head: Atraumatic Eyes: Normal Conjunctiva ENT: Normal External Ears, Nose and Mouth. Neck: Full range of motion..~ No meningismus. Resp: Clear to auscultation bilaterally Cardio: Regular rate and rhythm, no murmurs Abd: Soft, non tender, non distended. Normal bowel sounds Skin: No petechiae or rashes Back: No midline or flank tenderness Ext: No cyanosis, or edema Neur: Awake and alert Psych: Normal Mood and Affect Procedures/MDM Patient's behavioral symptoms have stabilized while in the department. Patient has no homicidal or suicidal ideation. Stable for outpatient management. Given outpatient psychiatric resources. Departure Diagnosis: Primary Impression: Depression Depression Type: unspecified Qualified Code: F32.9 - Depression, unspecified depression type Condition: Stable BRIA HSU May 19, 2017 22:38
[2017-05-19 23:03] VITALS: BP 138/74; PULSE 67; RESP 16; TEMP 98.3
[2017-05-20] MEDS ORDERED: PRED20TA PO (08:15)
[2017-05-20] MEDS ORDERED: CYCL5TAB PO (08:15)
== END 2017-05-19 23:07 | disposition home or self-care (01) ==
LOC: E/R 21:45
DX: F32.9 Major depressive disorder, single episode, unspecified (principal); I10 Essential (primary) hypertension; E11.9 Type 2 diabetes mellitus without complications; Z79.4 Long term (current) use of insulin; Z79.82 Long term (current) use of aspirin
CPT/HCPCS: 99284

== ENCOUNTER 2017-05-20 06:52 | Emergency (ER) | payer OTHER ==
[~2017-05-20] VITALS: Ht 162.6 cm; Wt 100.0 kg
[2017-05-20 06:55] VITALS: Ht 162.6 cm; Wt 100.0 kg
--- NOTE | 2017-05-20 07:44 | ERD ---
ER Documentation Chief Complaint Chief Complaint non traumatic low back pain. no nausea no vomiting, HPI This is a 62-year-old female with a past medical history of hypertension, diabetes, seizure disorder, chronic low back pain who is presenting to the emergency department with exacerbation of her low back pain. The patient reports that she is currently homeless and she has been staying in shelters. The beds have been very uncomfortable and she has been having increasing mid nonradiating lower back pain. The patient has had pain with movement. It also hurts to touch. The patient has not had any trauma. She does not endorse any recent falls. She does have a seizure disorder and last had a seizure 3 weeks ago. There is no associated trauma at that time. The patient is able to ambulate and move her legs. She has no decrease in sensation. She has no saddle anesthesia. She has no weakness or numbness or tingling to the face or extremities. She has not been incontinent of urine or stool. She has not had any issues with urinary retention. ROS All systems reviewed and are negative except as per history of present illness. Medications Home Meds Active Scripts Ibuprofen* (Ibuprofen*) 400 Mg Tablet, 400 MG PO Q6H Y for PAIN, #30 TAB Prov:TIA GRAYSON PA-C 05/06/17 Phenytoin* Sodium Extended (Dilantin*) 100 Mg Capsule, 100 MG PO TID for 30 Days , CAP Start 24 hours after Dilantin loading dose in ER Prov:FIGUEROA DANIELLE MD 05/05/17 Reported Medications Topiramate (Topiramate ER) 100 Mg Cap.spr.24, 100 MG PO DAILY 05/10/17 Albuterol Sulfate* (Proair HFA*) 8.5 Gm Hfa.aer.ad, 2 PUFF INH Q4, #1 INHALER 05/10/17 Ipratropium [place]* (Atrovent HFA*) 12.9 Gm Aer.w.adap, 2 PUFF INHALATION Q4H for SHORTNESS OF BREATH, #1 INHALER 05/10/17 Salmeterol Xinaf-Fluticasone* (Advair*) 100/50 Diskus Inhaler, 1 INH INHALATION BID, #1 INHALER 05/10/17 Lamotrigine* (Lamictal*) 100 Mg Tablet, 100 MG PO DAILY, TAB 11/10/17 Amlodipine Besylate/Benazepril (Amlodipine-Benazepril 5-10 mg) 1 Each Capsule, 1 EACH PO DAILY, CAP 05/10/17 Donepezil HCl (Aricept) 10 Mg Tablet, 10 MG PO DAILY, #30 TAB 05/10/17 Aspirin (Aspirin) 81 Mg Tablet.dr, 81 MG PO DAILY 05/10/17 Phenytoin (Dilantin) 100 Mg/4 Ml Susp, 100 MG PO DAILY for 30 Days, BOTTLE 05/10/17 Insulin Lispro (Humalog) 100 Unit/1 Ml Cartridge, 100 UNIT SQ 05/10/17 Trazodone Hcl* (Trazodone Hcl*) 50 Mg Tablet, 50 MG PO QHS, #30 TAB 05/10/17 Bupropion Hcl* (Bupropion Hcl*) 75 Mg Tablet, 75 MG PO DAILY, TAB 04/25/17 Aripiprazole* (Abilify*) 5 Mg Tab, 5 MG PO QHS, #30 TAB 04/25/17 Topiramate* (Topiramate*) 25 Mg Tablet, 25 MG PO BID, TAB 04/25/17 Allergies Allergies: Coded Allergies: acetaminophen (Verified Allergy, Mild, RASH, 04/25/17) codeine (Verified Allergy, Unknown, pt said she turns red, 04/25/17) temazepam (Verified Allergy, Unknown, ITCHINESS, RASH, 04/25/17) fluoxetine (Verified Adverse Reaction, Mild, DEPRESSION, 04/25/17) PMhx/Soc History of Surgery: Yes (brain sx, BTL) Anesthesia Reaction: No Hx Neurological Disorder: Yes (BRAIN SX , EPELIPSY) Hx Respiratory Disorders: No Hx Cardiac Disorders: Yes (HTN, DM) Hx Psychiatric Problems: Yes (DEPRESSION) Hx Miscellaneous Medical Probl: Yes (chronic low back pain) Hx Alcohol Use: No Hx Substance Use: No Hx Tobacco Use: No Smoking Status: Never smoker FmHx Family History: diabetes Physical Exam Vitals Vital Signs Date Time Temp Pulse Resp B/P Pulse Ox O2 Delivery O2 Flow Rate FiO2 05/20/17 06:55 98.0 73 20 143/75 98 Physical Exam Const: No apparent distress, well-developed, well-nourished Head: Normocephalic, Atraumatic Eyes: Normal Conjunctiva. Extraocular movements intact. Pupils equal, round and reactive to light ENT: Normal External Ears, Nose and Mouth. Neck: Full range of motion. No meningismus. Resp: Clear to auscultation bilaterally, No wheezes, rales or rhonchi Cardio: Regular rate and rhythm. No murmurs, rubs or gallops Abd: Soft, non tender, non distended. No palpable pulsatile abdominal masses. Normal bowel sounds Skin: No petechiae or rashes Back: Mild Midline Lumbar Tenderness. No CVA tenderness Ext: No cyanosis, or edema. Negative Straight leg raise. Neur: Awake and alert, oriented 4. Cranial nerves intact. No facial droop. Normal strength, sensation and coordination. No saddle anesthesia. Psych: Normal Mood and Affect Procedures/MDM MDM The patient's presentation warrants further investigation. I do suspect exacerbation of her chronic back pain. It was nontraumatic. I have low suspicion for fracture or listhesis. I do not feel that x-ray imaging is warranted at this time. The patient has an unremarkable neurologic exam, which is reassuring. The patient has no abdominal complaints, and I have low suspicion for AAA. I have low suspicion for pancreatitis. The patient does not have any flank pain. I have low suspicion for nephrolithiasis. The patient 's vital signs were reviewed and are unremarkable. TREATMENT/DISPOSITION The patient will be given IM Toradol and prednisone in the emergency department. She will be sent home with a prescription for a Medrol Dosepak. She may take ibuprofen as needed for exacerbation of her discomfort. She also be given a prescription for Flexeril. She will be given precautions about this medication as it can be sedating. At this time, I feel that the patient stable for discharge. The patient will need follow-up with his primary care physician in 2-3 days. The patient will be given strict precautions with which to return to the emergency department. The patient's blood pressure was elevated at greater than 120/80 while in the emergency department. The patient was otherwise stable with no evidence of hypertensive urgency or emergency or end organ damage. The patient does not require admission for blood pressure control. I have discussed with the patient the risks of hypertension. I have advised the patient to follow up with the primary care physician for outpatient monitoring and treatment for hypertension in 2-3 days. I have instructed the patient to return to the ER for any new or worsening symptoms including chest pain, shortness of breath, headache, blurred vision, confusion, nausea, vomiting or LOC. Disclaimer: Inadvertent spelling and grammatical errors are likely due to EHR/ dictation software use and do not reflect on the overall quality of patient care. Note that the electronic time recorded on this note does not necessarily reflect the actual time of the patient encounter. Departure Diagnosis: Primary Impression: Back pain Back pain location: low back pain Chronicity: chronic Back pain laterality : midline Sciatica presence: without sciatica Qualified Code: M54.5 - Chronic midline low back pain without sciatica Ruled Out: Injury of back Condition: Stable ROYAL LEAL MD May 20, 2017 07:44 ROYAL LEAL MD May 20, 2017 07:44
[2017-05-20] MEDS ORDERED: KETOROLAC 15 MG INJ IM STA (07:57)
[2017-05-20] MEDS ORDERED: predniSONE 20 MG TAB PO ONE (08:00)
[2017-05-20] MEDS ORDERED: PRED20TA PO (08:15)
[2017-05-20] MEDS ORDERED: CYCL5TAB PO (08:15)
[2017-05-20 14:36] VITALS: BP 140/75; PULSE 65; RESP 18; TEMP 98.1
== END 2017-05-20 14:50 | disposition home or self-care (01) ==
LOC: E/R 06:52
DX: M54.5 Low back pain (principal); I10 Essential (primary) hypertension; E11.9 Type 2 diabetes mellitus without complications; Z79.4 Long term (current) use of insulin; Z79.82 Long term (current) use of aspirin
CPT/HCPCS: 96372; J1885; J7512; Z7502

== ENCOUNTER 2018-09-04 11:56 | Emergency (ER) | payer OTHER ==
[~2018-09-04] VITALS: Ht 165.1 cm; Wt 90.0 kg
[~2018-09-04 11:56] MED LIST changes: -ALBU8.5H3 INH; +ALBU8.5H8 INH; +ARIP5TAB14 PO; -ARIP5TAB7 PO; +ASPI-1044 PO; -ASPI-664 PO; +ATRO INHALATION; -DIL125/5 PO; -DONE10TA33 PO; +DONE10TA58 PO; +IBUP-1541 PO; -IBUP400T22 PO; -INSU100C SQ; -IPRA12.93 INHALATION; +PRED20TA PO; -TOPI-44 PO; +TOPI25TA10 PO; +TRAZ-111 PO; -TRAZ50TA18 PO
[2018-09-04 12:01] VITALS: Ht 165.1 cm; Wt 90.0 kg
--- NOTE | 2018-09-04 12:23 | ERD ---
ER Documentation Chief Complaint Chief Complaint LIZBETH from the clinic due to non-radiating chest pain this morning HPI This is a 63-year-old female with a past medical history of hypertension, COPD, seizure disorder compliant on Dilantin and Topamax, mild dementia, chronic chest pain, headaches who is presenting with chest pain for 2 days and a possible breakthrough seizure that occurred this morning as well. The patient cannot describe the event as she does not remember. She believes bystanders called paramedics. She has a mild right sided temporal headache, typical after a seizure. The patient reports that she does occasionally get headaches, and her headache today is normal for her. Her last seizure was reportedly 3-4 years ago. She does not know if she hit her head or not. The patient has had no focal deficits. The patient has had no weakness or numbness or tingling to the face or extremities. She is currently alert and oriented x3. The patient has a secondary complaint of mid substernal nonradiating mild to moderate waxing and waning tingling chest pain, going on for the last 2 days. She reports a chronic history of these episodes in the past, and she indicates that she has been worked up fully without any acute findings. The patient has had no trouble breathing. The patient denies nausea or vomiting. She denies lightheadedness or dizziness. She denies diaphoresis. She has not had any trauma or injury or extra exertion. She denies any alleviating or exacerbating factors. She was reportedly seen at her clinic and referred to the emergency department for this. The patient denies feeling sick recently. The patient denies fever or chills. The patient has had no headache or vision changes. The patient does not endorse neck or back pain. The patient denies abdominal pain. The patient denies changes to bowel movements or urination. ROS All systems reviewed and are negative except as per history of present illness. Medications Home Meds Reported Medications Bupropion Hcl* (Bupropion Hcl*) 75 Mg Tablet, 75 MG PO DAILY, TAB 09/04/18 Aripiprazole* (Abilify*) 5 Mg Tab, 5 MG PO DAILY, #30 TAB 09/04/18 Lamotrigine* (Lamotrigine* ER) 100 Mg Tab.er.24, 200 MG PO DAILY, TAB 09/04/18 Phenytoin* Sodium Extended (Dilantin*) 30 Mg Capsule, 30 MG PO TID, CAP 09/04/18 Phenytoin* Sodium Extended (Dilantin*) 100 Mg Capsule, 100 MG PO TID, CAP 09/04/18 Topiramate* (Topiramate*) 100 Mg Tablet, 100 MG PO DAILY, TAB 09/04/18 Discontinued Reported Medications Topiramate (Topiramate ER) 100 Mg Cap.spr.24, 100 MG PO DAILY 05/10/17 Albuterol Sulfate* (Proair HFA*) 8.5 Gm Hfa.aer.ad, 2 PUFF INH Q4, #1 INHALER 05/10/17 Ipratropium [place]* (Atrovent HFA*) 12.9 Gm Aer.w.adap, 2 PUFF INHALATION Q4H for SHORTNESS OF BREATH, #1 INHALER 05/10/17 Salmeterol Xinaf-Fluticasone* (Advair*) 100/50 Diskus Inhaler, 1 INH INHALATION BID, #1 INHALER 05/10/17 Lamotrigine* (Lamictal*) 100 Mg Tablet, 100 MG PO DAILY, TAB 05/10/17 Amlodipine Besylate/Benazepril (Amlodipine-Benazepril 5-10 mg) 1 Each Capsule, 1 EACH PO DAILY, CAP 05/10/17 Donepezil HCl (Aricept) 10 Mg Tablet, 10 MG PO DAILY, #30 TAB 05/10/17 Aspirin Delayed Release (Aspirin Delayed Release) 81 Mg Tablet.dr, 81 MG PO DAILY 05/10/17 Trazodone Hcl* (Trazodone Hcl*) 50 Mg Tablet, 50 MG PO QHS, #30 TAB 05/10/17 Bupropion Hcl* (Bupropion Hcl*) 75 Mg Tablet, 75 MG PO DAILY, TAB 04/25/17 Aripiprazole* (Abilify*) 5 Mg Tab, 5 MG PO QHS, #30 TAB 04/25/17 Topiramate* (Topiramate*) 25 Mg Tablet, 25 MG PO BID, TAB 04/25/17 Discontinued Scripts Prednisone (Prednisone) 20 Mg Tab, 40 MG PO DAILY for 4 Days, TAB Prov:ROYAL LEAL MD 05/20/17 Ibuprofen* (Ibuprofen*) 400 Mg Tablet, 400 MG PO Q6H PRN for PAIN, #30 TAB Prov:SUMITIA Rushing Fay SUTHERLAND 05/06/17 Phenytoin* Sodium Extended (Dilantin*) 100 Mg Capsule, 100 MG PO TID for 30 Days, CAP Start 24 hours after Dilantin loading dose in ER Prov:FIGUEROA DANIELLE MD 05/05/17 Allergies Allergies: Coded Allergies: acetaminophen (Unverified Allergy, Mild, RASH, 08/19/17) codeine (Unverified Allergy, Unknown, pt said she turns red, 08/19/17) metoclopramide (Unverified Allergy, Unknown, 09/04/18) temazepam (Unverified Allergy, Unknown, ITCHINESS, RASH, 08/19/17) PMhx/Soc History of Surgery: Yes (Bilateral tubal ligation) Anesthesia Reaction: No Hx Neurological Disorder: Yes (seizures, dementia) Hx Respiratory Disorders: Yes (COPD) Hx Cardiac Disorders: Yes (hypertension, type 2 diabetes) Hx Psychiatric Problems: Yes Hx Miscellaneous Medical Probl: No Hx Alcohol Use: No Hx Substance Use: No Hx Tobacco Use: No FmHx Family History: diabetes Physical Exam Vitals Vital Signs Date Temp Pulse Resp B/P (MAP) Pulse Ox O2 O2 Flow FiO2 Time Delivery Rate 09/04/18 53 14 165/77 100 Room Air 13:23 (106) 09/04/18 98.4 54 14 153/75 98 12:01 (101) Physical Exam Const: No apparent distress, well-developed, well-nourished Head: Normocephalic, Atraumatic Eyes: Normal Conjunctiva. Extraocular movements intact. Pupils equal, round and reactive to light ENT: Normal External Ears, Nose and Mouth. Neck: Full range of motion. No meningismus. Resp: Clear to auscultation bilaterally, No wheezes, rales or rhonchi Cardio: Regular rhythm. Bradycardia. No murmurs, rubs or gallops Abd: Soft, non tender, non distended. Normal bowel sounds Skin: No petechiae or rashes Back: No midline tenderness. No CVA tenderness Ext: No cyanosis, or edema Neur: Awake and alert, oriented 4. Cranial nerves intact. No facial droop. Normal strength, sensation and coordination. Psych: Normal Mood and Affect Result Diagram: 09/04/18 1245 09/04/18 1245 Results 24 hrs Laboratory Tests Test 09/04/18 12:45 White Blood Count 6.0 10^3/ul Red Blood Count 3.53 10^6/ul Hemoglobin 11.3 g/dl Hematocrit 34.6 % Mean Corpuscular Volume 98.0 fl Mean Corpuscular Hemoglobin 32.0 pg Mean Corpuscular Hemoglobin Concent 32.7 g/dl Red Cell Distribution Width 12.4 % Platelet Count 153 10^3/UL Mean Platelet Volume 9.3 fl Immature Granulocytes % 0.300 % Neutrophils % 58.4 % Lymphocytes % 29.1 % Monocytes % 10.9 % Eosinophils % 1.0 % Basophils % 0.3 % Nucleated Red Blood Cells % 0.0 /100WBC Immature Granulocytes # 0.020 10^3/ul Neutrophils # 3.5 10^3/ul Lymphocytes # 1.7 10^3/ul Monocytes # 0.7 10^3/ul Eosinophils # 0.1 10^3/ul Basophils # 0.0 10^3/ul Nucleated Red Blood Cells # 0.0 10^3/ul Sodium Level 142 mmol/L Potassium Level 4.3 mmol/L Chloride Level 105 mmol/L Carbon Dioxide Level 29 mmol/L Anion Gap 8 Blood Urea Nitrogen 19 mg/dl Creatinine 0.94 mg/dl Est Glomerular Filtrat Rate mL/min > 60 mL/min Glucose Level 99 mg/dl Calcium Level 9.1 mg/dl Troponin I < 0.012 ng/ml Phenytoin (Dilantin) Level < 3.0 ug/ml Current Medications Medications Dose Sig/Bladimir Start Time Status Last (Trade) Ordered Route PRN Stop Time Admin Dose Reason Admin Sodium 1,000 ml @ Q1H ONCE 09/04/18 DC 09/04/18 Chloride 1,000 mls/hr IV 13:30 09/04/18 13:31 14:29 Ketorolac 15 mg ONCE STAT 09/04/18 DC 09/04/18 Tromethamine IV 13:22 09/04/18 13:31 (Toradol) 13:23 Phenytoin 100 ml @ ONCE STAT 09/04/18 DC 09/04/18 1000 mg/ 200 mls/hr IVPB 13:48 09/04/18 14:32 Sodium 14:17 Chloride Procedures/MDM MDM The patient's presentation warrants further investigation. Previous medical records, if available, were reviewed. LABS The patient's laboratory testing was obtained and reviewed. No emergent treatment was required unless described below. CBC: No E/o systemic infection or severe anemia or thrombocytopenia. Mild normocytic anemia, not emergent. Chemistry: No E/o severe acidosis or alkalosis or renal failure or diabetic ketoacidosis Troponin: No E/o acute ischemia Dilantin level: Low EKG EKG read by me: Rate/Rhythm: Sinus bradycardia at 55 bpm Intervals: Normal [place]: Normal Impression: Low voltage QRS complex without evidence of acute ischemia. Mild bradycardia. IMAGING Imaging and Radiology interpretation reviewed. CXR FINDINGS: The heart and mediastinum are within normal limits. There is a vagal nerve stimulator seen in the left upper chest. The lungs are clear. There is no pleural effusion or pneumothorax. IMPRESSION: No acute disease. Electronically viewed and signed by Lance Sanon MD, MD on 09/04/2018 13:07 TREATMENT/DISPOSITION The patient reports for multiple complaints. The patient's primary concern is having had a possible seizure this morning. The patient does have a history of seizures, and a breakthrough seizure is likely. The patient reports compliance with her Dilantin, but her Dilantin level is negative indicating noncompliance. The patient was bolused with Dilantin in the emergency department. Etiologies for a possible decreased seizure threshold were evaluated. The patient has a reassuring physical exam. The patient is not clinically orthostatic. The patient is not dizzy. I have decreased suspicion for vertigo. The patient has no signs of emergent or symptomatic anemia. The patient does not have any emergent electrolyte or metabolic emergencies. I have decrease suspicion for a thyroid disorder. The patient is not toxic appearing. I have decreased suspicion for an infectious etiology of symptoms. I do not see evidence of any emergent cardiac arrhythmia, which includes but is not limited to heart block, Brugada syndrome or WPW. The patient has no heart murmurs or rales. The patient is mildly bradycardic, but it was stable in the emergency department. I doubt this to be the etiology of her symptoms today. I do not suspect sick sinus syndrome. The patient has no focal deficits. The neurologic exam is reassuring. I have decreased suspicion for cerebral ischemia. There was no trauma or injury. There is no personal or family history of cerebral aneurysm. I have decreased suspicion for SAH or other ICH. I have low suspicion for temporal arteritis, cavernous venous thrombosis, subdural hematoma, epidural hematoma, meningitis. The patient also endorses chronic waxing and waning chest pains. The patient's chest xray does not reveal pneumonia or pneumothorax or pleural effusions or pulmonary edema. The patient does not have a widened mediastinum and does not have signs or symptoms concerning for thoracic aortic aneurysm or dissection. The patient does not have pneumomediastinum or signs concerning for esophageal tear or rupture. The patient has no clinical or radiographic signs of pericardial effusion or tamponade. The patient does not have pneumoperitoneum and I have decreased suspicion of viscus perforation as possible referred pain. The patient does not have a history of heart failure and I have low suspicion for this. The patient does not have a diagnosis of COPD and is not wheezing today. The patient is not tachypneic or hypoxic. The patient is breathing comfortably and without pleuritic pain. The patient is not on hormonal therapy. The patient has no history of clotting or bleeding disorders. The patient has no calf tenderness. The patient has had no hemoptysis. I have decreased suspicion for PE. The patient's troponin and EKG are reassuring. I have low suspicion for acute coronary syndrome. The patient's HEART score is equal to or less than 3. This stratifies the patient into the low risk (<1%) group for an major adverse cardiac event within the next 30 days. Shared decision making was enacted. The risks and benefits of admission and discharge were discussed with the patient and it was ultimately decided that the patient would be discharged with close outpatient follow up and evaluation for functional testing within 72 hours. The patient was treated with IV fluids and Toradol with improvement of her pain. The patient was bolused with Dilantin as described above. Upon reevaluation of the patient, symptoms have improved. No emergent diagnoses were identified. At this time, I feel that the patient is medically stable for discharge. The patient was instructed to follow-up with a primary care physician in 1-3 days. The patient may also require follow-up with her neurologist for assessment of her seizure medications. The patient will be given strict precautions with which to return to the emergency department. The patient's director of casework department called and provide his us information with her housing information. She will be provided a taxi to this location. The facility was made aware of her impending arrival. Prescriptions: None The patient's blood pressure was elevated at greater than 120/80 while in the emergency department. The patient was otherwise stable with no evidence of hypertensive urgency or emergency. The patient does not require admission for blood pressure control. I have discussed with the patient the risks of hypertension. I have instructed the patient to return to the ER for any new or worsening symptoms including chest pain, shortness of breath, headache, blurred vision, confusion, nausea, vomiting or LOC. I have advised the patient to follow up with the primary care physician for outpatient monitoring and treatment for hypertension in 1-3 days. Disclaimer: Inadvertent spelling and grammatical errors are likely due to EHR/dictation software use and do not reflect on the overall quality of patient care. Note that the electronic time recorded on this note does not necessarily reflect the actual time of the patient encounter. Departure Diagnosis: Primary Impression: Nonspecific chest pain Additional Impressions: Breakthrough seizure Normocytic anemia Bradycardia Condition: Stable Patient Instructions: Chest Pain, Uncertain Cause, Seizure, Recurrent [Adult] Additional Instructions: Thank you for for coming to [facility] for your care today. Please ask your nurse or provider if you have questions about your care today and do not leave until all your questions have been answered. Please use any medications given as directed and follow-up with your doctor (or the doctor you were referred to) in the next 1-3 days. If you do not have a primary care doctor you may follow up at the [facility] or [facility] (listed below). You may also use motrin and tylenol as needed for fever and/or pain unless instructed otherwise by your provider or nurse. Indications for more urgent follow-up have been discussed, but you may return to the Emergency Department at ANY time for any worrisome or worsening symptoms. If you have abdominal pain, please know that no test or exam you received is perfect and you should follow up within 8 hours for continued pain. If you had any imaging studies today, such as an X-Ray or CT Scan, these studies will be reviewed later by a radiologist. You will be called if there are important findings that were not identified today, so make sure the contact information you provided at registration is correct. If you received any narcotic pain control medicine today, such as Vicodin, Morphine or Dilaudid, your coordination and judgment may be affected for a number of hours. Please do not drive or operate heavy machinery, and you may want someone to assist you at home. If you were given a prescription for narcotic medication, be aware that it is very addictive- use sparingly and only if necessary. PLEASE SEEK FURTHER EVALUATION AND MANAGEMENT AT YOUR DOCTORS OFFICE WITHIN THE NEXT 1-3 DAYS. IT IS YOUR RESPONSIBILITY TO MAKE AN APPOINTMENT FOR FOLOW-UP CARE. IF YOU HAVE A PRIMARY DOCTOR, PLEASE CALL THEIR OFFICE TO SCHEDULE AN APPOINTMENT FOR FOLLOW UP. IF YOU DO NOT HAVE A PRIMARY DOCTOR YOU CAN CALL OUR PHYSICIAN REFERRAL HOTLINE AT IF YOU CAN NOT AFFORD TO SEE A PHYSICIAN YOU CAN CHOSE FROM THE FOLLOWING [facility] CL[facility]: [facility] [address] [facility]. [facility] [address] [facility]. [facility] [address] [facility]. [facility] [address] [facility]. [facility] [address] [facility]. [facility]. [address] ROYAL LANCE MD Sep 04, 2018 12:23
[2018-09-04] MEDS ORDERED: KETOROLAC 15 MG INJ IV STA (13:22)
[2018-09-04] MEDS ORDERED: SOD CHLORIDE 0.9% 1,000 ML IV ONE (13:30)
[2018-09-04] MEDS ORDERED: PHENYTOIN 1,000 MG in SOD CHLORIDE 0.9% 80 ML IVPB STA (13:48)
[2018-09-04] MEDS ORDERED: TOPI100T11 PO (14:41)
[2018-09-04] MEDS ORDERED: PHEN100C PO (14:42)
[2018-09-04] MEDS ORDERED: PHEN30CA PO (14:49)
[2018-09-04] MEDS ORDERED: LAMO100T65 PO (14:52)
[2018-09-04] MEDS ORDERED: ARIP5TAB14 PO (14:53)
[2018-09-04] MEDS ORDERED: BUPR75TA9 PO (14:53)
[2018-09-04 17:59] VITALS: BP 141/88; PULSE 59; RESP 16
== END 2018-09-04 18:02 | disposition home or self-care (01) ==
LOC: E/R 11:56
DX: G40.909 Epilepsy, unspecified, not intractable, without status epilepticus (principal); D64.9 Anemia, unspecified; R00.1 Bradycardia, unspecified; I10 Essential (primary) hypertension; E11.9 Type 2 diabetes mellitus without complications; J44.9 Chronic obstructive pulmonary disease, unspecified; Z79.82 Long term (current) use of aspirin
CPT/HCPCS: 71045; 80048; 80185; 84484; 85025; 93005; 96374; 96375; J1165; J1885; J7030; Z7502; Z7610